=== PATIENT | female | born 1990 | race Caucasian/White ===

== ENCOUNTER 2019-08-21 23:50 | Emergency (ER) | payer SELFPAY ==
[~2019-08-21] VITALS: Ht 162.5 cm; Wt 126.9 kg
[2019-08-22] MEDS ORDERED: morphine INJ 10 MG/ML 1ML (SYR OR VIAL) IVP STA (00:24)
--- NOTE | 2019-08-22 00:24 | ED Abdominal Pain ---
General Chief Complaint: Abdominal/GI Problems Stated Complaint: VOMITING Nursing Triage Note: PT. REPORTED SHE HAS NAUSEA, VOMITING AND DIARREHA THAT STARTED YESTERDAY AFTERNOON. SHE REPORTED WHEN VOMITING SHE HAS ABD. PAIN. SHE REPORTED SHE HAS VOMITED SO MANY TIMES SHE LOST COUNT OF HOW MANY TIMES SHE VOMITED. Sepsis Screen: No Definite Risk Source of Information: Patient Exam Limitations: No Limitations History of Present Illness Date Seen by Provider: Aug 22, 2019 Time Seen by Provider: 00:10 Initial Comments The patient is a pleasant obese 28-year-old female who presents for evaluation of nausea, vomiting, diarrhea, and abdominal discomfort which started appr oximately 6-8 hours ago. She reports that some family members the day before had similar symptoms, were prescribed Zofran, and are now feeling better. Her family tried to give her one of the Zofran but she states he did not help. She reports several episodes of vomiting and diarrhea. She has a past surgical history including appendectomy and cholecystectomy. She denies fevers or chills, back or flank pain, rectal bleeding, hematemesis, chest pain or shortness of breath, or urinary complaints. She is alert and oriented 4, appears somewhat anxious, but is in no distress this time. Timing/Duration: 4-6 Hours Severity/Quality: Moderate Location: Generalized Abdomen Radiation: No Radiation Associated Symptoms: Nausea/Vomiting, Other (diarrhea) Allergies and Home Medications Allergies Coded Allergies: tramadol (Verified Allergy, Unknown, 08/22/19) Patient Home Medication List Home Medication List Reviewed: Yes Review of Systems Review of Systems Constitutional: no symptoms reported EENTM: No Symptoms Reported Respiratory: No Symptoms Reported Cardiovascular: No Symptoms Reported Gastrointestinal: Abdominal Pain, Diarrhea, Nausea, Vomiting Genitourinary: No Symptoms Reported Musculoskeletal: no symptoms reported Skin: no symptoms reported Psychiatric/Neurological: No Symptoms Reported Endocrine: No Symptoms Reported Hematologic/Lymphatic: No Symptoms Reported All Other Systems Reviewed Negative Unless Noted: Yes Past Ndwnfig-Edlrqt-Xyonvy Hx Past Med/Social Hx: Reviewed Nursing Past Med/Soc Hx Patient Social History Recent Foreign Travel: No Contact w/Someone Who Travel: No Recent Infectious Disease Expo: No Recent Hopitalizations: No Physical Abuse: No Sexual Abuse: No Mistreated: No Fear: No Seasonal Allergies Seasonal Allergies: No Past Medical History Surgeries: Yes Appendectomy, Section, Gallbladder, Tonsillectomy Respiratory: No Cardiac: No Neurological: No Female Reproductive Disorders: Ovarian Cyst Genitourinary: No Gastrointestinal: Yes Gall Bladder Disease Musculoskeletal: No Endocrine: No HEENT: No Cancer: No Psychosocial: No Integumentary: No Blood Disorders: No Physical Exam Vital Signs Vital Signs - First Documented 08/22/19 00:00 Temp 36.7 Pulse 98 Resp 16 B/P (MAP) 116/72 (87) O2 Delivery Room Air Capillary Refill : Less Than 3 Seconds Height/Weight/BMI Height: '" Weight: lbs. oz. 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, no motor/sensory deficits, alert, normal mood/affect, oriented x 3 Skin: normal color, warm/dry Progress/Results/Core Measures Results/Orders Lab Results Laboratory Tests Test 08/22/19 00:30 08/22/19 00:38 Range/Units White Blood Count 11.9 H 4.3-11.0 10^3/uL Red Blood Count 5.02 4.35-5.85 10^6/uL Hemoglobin 13.7 11.5-16.0 G/DL Hematocrit 42 35-52 % Mean Corpuscular Volume 84 80-99 FL Mean Corpuscular Hemoglobin 27 25-34 PG Mean Corpuscular Hemoglobin Concent 32 32-36 G/DL Red Cell Distribution Width 13.1 10.0-14.5 % Platelet Count 357 130-400 10^3/uL Mean Platelet Volume 9.9 7.4-10.4 FL Neutrophils (%) (Auto) 91 H 42-75 % Lymphocytes (%) (Auto) 5 L 12-44 % Monocytes (%) (Auto) 3 0-12 % Eosinophils (%) (Auto) 0 0-10 % Basophils (%) (Auto) 0 0-10 % Neutrophils # (Auto) 10.9 H 1.8-7.8 X 10^3 Lymphocytes # (Auto) 0.6 L 1.0-4.0 X 10^3 Monocytes # (Auto) 0.4 0.0-1.0 X 10^3 Eosinophils # (Auto) 0.1 0.0-0.3 10^3/uL Basophils # (Auto) 0.0 0.0-0.1 10^3/uL Neutrophils % (Manual) 96 % Lymphocytes % (Manual) 1 % Monocytes % (Manual) 1 % Band Neutrophils 2 % Microcytosis MODERATE Sodium Level 141 135-145 MMOL/L Potassium Level 4.0 3.6-5.0 MMOL/L Chloride Level 99 98-107 MMOL/L Carbon Dioxide Level 26 21-32 MMOL/L Anion Gap 16 H 5-14 MMOL/L Blood Urea Nitrogen 10 7-18 MG/DL Creatinine 0.69 0.60-1.30 MG/DL Estimat Glomerular Filtration Rate > 60 BUN/Creatinine Ratio 14 Glucose Level 137 H 70-105 MG/DL Calcium Level 9.3 8.5-10.1 MG/DL Corrected Calcium 9.0 8.5-10.1 MG/DL Total Bilirubin 0.4 0.1-1.0 MG/DL Aspartate Amino Transf (AST/SGOT) 18 5-34 U/L Alanine Aminotransferase (ALT/SGPT) 19 0-55 U/L Alkaline Phosphatase 68 40-136 U/L Total Protein 7.8 6.4-8.2 GM/DL Albumin 4.4 3.2-4.5 GM/DL Lipase 14 8-78 U/L Urine Color YELLOW Urine Clarity CLEAR Urine pH 5.5 5-9 Urine Specific [place] 1.025 H 1.016-1.022 Urine Protein NEGATIVE NEGATIVE Urine Glucose (UA) NEGATIVE NEGATIVE Urine Ketones NEGATIVE NEGATIVE Urine Nitrite NEGATIVE NEGATIVE Urine Bilirubin NEGATIVE NEGATIVE Urine Urobilinogen 0.2 < = 1.0 MG/DL Urine Leukocyte Esterase NEGATIVE NEGATIVE Urine RBC (Auto) TRACE-I NEGATIVE Urine RBC 0-2 /HPF Urine WBC 0-2 /HPF Urine Squamous Epithelial Cells 25-50 H /HPF Urine Crystals NONE /LPF Urine Bacteria MODERATE H /HPF Urine Casts NONE /LPF Urine Mucus NEGATIVE /LPF Urine Culture Indicated YES My Orders Orders - ANMOL NOVAK DO Comprehensive Metabolic Panel (08/22/19 00:12) Lipase (08/22/19 00:12) Ua Culture If Indicated (08/22/19 00:12) Ed Iv/Invasive Line Start (08/22/19 00:12) Cbc With Automated Diff (08/22/19 00:12) Urine Bedside (08/22/19 00:12) Ns Iv 1000 Ml (Sodium Chloride 0.9%) (08/22/19 00:30) Dicyclomine Injection (Bentyl Injection) (08/22/19 00:30) Ondansetron Injection (Zofran Injectio (08/22/19 00:30) Ns Iv 1000 Ml (Sodium Chloride 0.9%) (08/22/19 00:30) Morphine Injection (Morphine Injection (08/22/19 00:24) Manual Differential (08/22/19 00:30) Urine Culture (08/22/19 00:38) Medications Given in ED Current Medications Medications Dose Ordered Sig/Edward Route Start Time Stop Time Status Last Admin Dose Admin Dicyclomine HCl 20 mg ONCE ONCE IM 08/22/19 00:30 08/22/19 00:31 DC 08/22/19 00:37 20 MG Ondansetron HCl 4 mg ONCE ONCE IVP 08/22/19 00:30 08/22/19 00:31 DC 08/22/19 00:38 4 MG Vital Signs/I&O 08/22/19 00:00 Temp 36.7 Pulse 98 Resp 16 B/P (MAP) 116/72 (87) O2 Delivery Room Air Blood Pressure Mean: 87 POS Progress Progress Note : Progress Note @0130 - The patient reports that she is feeling much better and is asking to go home. Workup today fails to reveal any emergent pathology. Advised patient to follow up with her PCP in the next 1-2 days and to return to the emergency Department immediately for new or worsening symptoms. She expresses verbal understanding and agreement with the plan and is stable for discharge. Departure Impression Primary Impression: Nausea vomiting and diarrhea Additional Impression: Abdominal pain Disposition: 01 HOME, SELF-CARE Condition: Stable Departure-Patient Inst. Decision time for Depature: 01:31 Referrals: NO,LOCAL PHYSICIAN (PCP) [place] Care Physician [facility] [place] Instructions: Nausea and Vomiting, Adult (DC), Viral Gastroenteritis, Dehydration, Adult (DC), Diarrhea in Adolescents and Adults Add. Discharge Instructions: Take the prescribed medicine as directed. Return to the ER immediately for new or worsening symptoms. Follow-up with your doctor in the next 1-2 days. Scripts Ondansetron (Ondansetron Odt) 4 Mg Tab.rapdis 4 MG PO Q6H PRN for NAUSEA/VOMITING-1ST LINE for 5 Days, #20 TAB Prov: ANMOL NOVAK DO 08/22/19 ANMOL NOVAK DO Aug 22, 2019 00:24 POS
[2019-08-22] MEDS ORDERED: KETOROLAC 30 MG/ML VIAL IVP ONE (00:30)
[2019-08-22] MEDS ORDERED: NS IV 1000 ML 1,000 ML IV SCH ×2 (00:30)
[2019-08-22] MEDS ORDERED: DICYCLOMINE 10 MG/ML (BENTYL) 2 ML AMP IM ONE (00:30)
[2019-08-22] MEDS ORDERED: ONDANSETRON 4 MG/2 ML (SDV) Z0FRAN IVP ONE (00:30)
[2019-08-22 00:39] LABS: HEMOGLOBIN 13.7 G/DL (11.5-16.0); MEAN CORPUSCULAR HEMOGLOBIN 27 PG (25-34); WHITE BLOOD COUNT 11.9 10^3/uL (4.3-11.0)
[2019-08-22 00:40] LABS: BASOPHILS % (AUTO) 0 % (0-10); EOSINOPHILS # (AUTO) 0.1 10^3/uL (0.0-0.3); EOSINOPHILS % (AUTO) 0 % (0-10); HEMATOCRIT 42 % (35-52); LYMPHOCYTES # (AUTO) 0.6 X 10^3 (1.0-4.0); LYMPHOCYTES % (AUTO) 5 % (12-44); MEAN CORPUSCULAR HGB CONC 32 G/DL (32-36); MEAN CORPUSCULAR VOLUME 84 FL (80-99); MEAN PLATELET VOLUME 9.9 FL (7.4-10.4); MONOCYTES # (AUTO) 0.4 X 10^3 (0.0-1.0); MONOCYTES % (AUTO) 3 % (0-12); NEUTROPHILS # (AUTO) 10.9 X 10^3 (1.8-7.8); NEUTROPHILS % (AUTO) 91 % (42-75); PLATELET COUNT 357 10^3/uL (130-400); RED CELL DISTRIBUTION WIDTH 13.1 % (10.0-14.5)
[2019-08-22 00:48] LABS: BILIRUBIN,URINE NEGATIVE (NEGATIVE); CLARITY,URINE CLEAR; COLOR,URINE YELLOW; GLUCOSE, URINE (UA) NEGATIVE (NEGATIVE); KETONES,URINE NEGATIVE (NEGATIVE); LEUKOCYTE ESTERASE ,URINE NEGATIVE (NEGATIVE); NITRITE,URINE NEGATIVE (NEGATIVE); PH,URINE 5.5 (5-9); PROTEIN,URINE NEGATIVE (NEGATIVE)
[2019-08-22 00:57] LABS: BACTERIA,URINE MODERATE /HPF; RBC,URINE 0-2 /HPF; SQUAMOUS EPITHELIAL CELL,UR 25-50 /HPF; WBC,URINE 0-2 /HPF
[2019-08-22 01:03] LABS: ALANINE AMINOTRANSFERASE 19 U/L (0-55); ALBUMIN 4.4 GM/DL (3.2-4.5); ALKALINE PHOSPHATASE 68 U/L (40-136); BILIRUBIN,TOTAL 0.4 MG/DL (0.1-1.0); BUN/CREATININE RATIO 14; CALCIUM 9.3 MG/DL (8.5-10.1); CARBON DIOXIDE 26 MMOL/L (21-32); CHLORIDE 99 MMOL/L (98-107); CREATININE SERUM 0.69 MG/DL (0.60-1.30); GFR ESTIMATED > 60; GLUCOSE 137 MG/DL (70-105); LIPASE 14 U/L (8-78); SODIUM 141 MMOL/L (135-145); TOTAL PROTEIN 7.8 GM/DL (6.4-8.2)
[2019-08-22 01:04] LABS: BAND NEUTROPHILS 2 %; LYMPHOCYTES % (MANUAL) 1 %; MICROCYTOSIS MODERATE; MONOCYTES % (MANUAL) 1 %; NEUTROPHILS % (MANUAL) 96 %
[2019-08-22] MEDS ORDERED: ONDA4TAB11 PO (01:33)
[2019-08-22 01:53] VITALS: BP 120/74
== END 2019-08-22 01:57 | disposition home or self-care (01) ==
LOC: ER FS 23:54
DX: R19.7 Diarrhea, unspecified (principal); R11.2 Nausea with vomiting, unspecified; R10.84 Generalized abdominal pain; Z90.49 Acquired absence of other specified parts of digestive tract; Z88.5 Allergy status to narcotic agent; Z90.89 Acquired absence of other organs
CPT/HCPCS: 36415; 80053; 81000; 83690; 84703; 85007; 85027; 87088; 96372; 96374; 96375

== ENCOUNTER → 2020-07-28 | Outpatient (CLI) | payer MEDICAID ==
[~2020-07-28] MED LIST: ONDA4TAB11 PO
--- NOTE | 2020-07-28 13:54 | Diagnostic Imaging Report ---
INDICATION: patient, survey. TECHNIQUE: Multiple Real-time grayscale images were obtained over the gravid uterus. COMPARISON: None during this . FINDINGS: A single live intrauterine fetus is seen measuring 20 weeks 5 days in size. The fetus is in breech presentation at this time. The placenta is posterior and low lying with its tip near the internal cervical os. The tip appears to be about 1.8 cm from the internal cervical os. The heart rate was 146 BPM. The maternal adnexa showed no free fluid. The cervical length was 5.2 cm. The survey showed normal-appearing kidneys, bladder, and stomach. Normal-appearing intracranial ventricles and spine were noted. A normal-appearing three-vessel cord and cord insertion were seen. A four-chamber heart view could not be obtained due to positioning. Biometrical measurements are as follows: Biparietal 5.05 cm, age 21 weeks 3 days. Head circumference 18..7 cm, age 21 weeks 1 days. Abdominal circumference 15.2 cm, age 20 weeks 4 days. Femur length 3.1 cm, age 19 weeks 5 days. Sonographic estimate age: 20 weeks 5 days. Sonographic estimated date of delivery: 12/10/2020. Estimated Weight: 339 gm (+/- 50 gm). LMP percentile: 40%. heart rate: 146 beats per minute. number: 1 of 1. IMPRESSION: Single live intrauterine fetus measuring 20 weeks 5 days in size. survey shows no detectable abnormality although a four-chamber heart view was not well visualized, consider followup. The placenta is posterior and low-lying, just about 1.8 cm above the internal cervical os. I would recommend followup studies later in to determine if this resolves. Dictated by: Dictated on workstation # [id number]
== END ==
LOC: RAD 09:46
PROVIDERS: ATTEND Obstetrics & Gynecology
DX: Z36.9 Encounter for antenatal screening, unspecified (principal)
CPT/HCPCS: 76805

== ENCOUNTER 2020-10-28 22:56 | Outpatient (CLI) | payer MEDICAID ==
[~2020-10-28] VITALS: Ht 162.6 cm; Wt 129.0 kg
--- NOTE | 2020-10-28 23:05 | NUR ---
FÁTIMA CHRISTIE presented to unit via W/C from ED, accompanied by bioprocessing manufacturing technician, with c/o CONTRACTIONS,VAGINAL PAIN. FÁTIMA CHRISTIE weighed, gowned, voided, and to bed. EFHM and TOCO applied, VS taken. FÁTIMA CHRISTIE oriented to bed controls, call light, TV, heat, and A/C controls.
[2020-10-28 23:12] LABS: BILIRUBIN,URINE NEGATIVE (NEGATIVE); CLARITY,URINE CLEAR; COLOR,URINE YELLOW; GLUCOSE, URINE (UA) NEGATIVE (NEGATIVE); KETONES,URINE NEGATIVE (NEGATIVE); LEUKOCYTE ESTERASE ,URINE NEGATIVE (NEGATIVE); NITRITE,URINE NEGATIVE (NEGATIVE); PROTEIN,URINE NEGATIVE (NEGATIVE)
[2020-10-28] MEDS ORDERED: PREN-142 PO (23:14)
[2020-10-28] MEDS ORDERED: OMEP20CA18 PO (23:14)
[2020-10-28 23:17] VITALS: BP 137/83
[2020-10-28 23:19] LABS: BACTERIA,URINE MODERATE /HPF
[2020-10-28 23:20] LABS: RENAL EPITHELIAL CELLS,URINE RARE /HPF
--- NOTE | 2020-10-28 23:55 | NUR ---
D/C instructions given & explained per Mildred Green, RN, pt. verbalized understanding & signed, copy of D/C instructions to pt. Pt. left WS ambulatory on own to home via private vehicle.
--- NOTE | 2020-10-29 08:17 | Physician Query-Final Dx ---
GISSEL PRIDE 10/29/20 0817: Clinic Account Progress/Dx Physician Query: Please give diagnosis Please include # of weeks gestation Date of Service Oct 28, 2020 at 22:56 JAMES DUPONT DO 10/29/20 1121: Clinic Account Progress/Dx DIAGNOSIS: Diagnosis 34 week iup Vaginal pain Anxiety GISSEL PRIDE Oct 29, 2020 08:17 JAMES DUPONT DO Oct 29, 2020 11:21
== END 2020-10-28 23:55 | disposition home or self-care (01) ==
LOC: WSo 22:56 → LDRP 22:57 → WSo 23:55
PROVIDERS: ATTEND Obstetrics & Gynecology
DX: O99.343 Other mental disorders complicating pregnancy, third trimester (principal); O26.893 Other specified pregnancy related conditions, third trimester; R10.2 Pelvic and perineal pain; Z3A.34 34 weeks gestation of pregnancy
CPT/HCPCS: 81000; G0463; 99212

== ENCOUNTER → 2020-11-17 | Outpatient (CLI) | payer MEDICAID ==
[~2020-11-17] MED LIST changes: +OMEP20CA18 PO; +PREN-142 PO
== END ==
LOC: LABNPT 15:15
PROVIDERS: ATTEND Obstetrics & Gynecology
DX: R03.0 Elevated blood-pressure reading, without diagnosis of hypertension (principal)
CPT/HCPCS: 82570; 84156

== ENCOUNTER 2020-11-18 14:23 | Outpatient (CLI) | payer MEDICAID ==
[~2020-11-18] VITALS: Ht 162.6 cm; Wt 133.4 kg
[2020-11-18 14:40] VITALS: BP 124/69
--- NOTE | 2020-11-19 08:22 | Physician Query-Final Dx ---
GISSEL PRIDE 11/19/20 0822: Clinic Account Progress/Dx Physician Query: Please give diagnosis Please include # weeks gestation Date of Service Nov 18, 2020 at 14:23 JAMES DUPONT DO 11/19/20 0833: Clinic Account Progress/Dx DIAGNOSIS: Diagnosis Pelvic pain/hip pain at 35 weeks gestation GISSEL PRIDE Nov 19, 2020 08:22 JAMES DUPONT DO Nov 19, 2020 08:33
== END 2020-11-18 16:05 | disposition home or self-care (01) ==
LOC: WSo 14:23 → LDRP 14:24 → WSo 16:05
PROVIDERS: ATTEND Obstetrics & Gynecology
DX: O99.891 Other specified diseases and conditions complicating pregnancy (principal); Z3A.35 35 weeks gestation of pregnancy
CPT/HCPCS: 99213

== ENCOUNTER 2020-12-02 05:42 | Outpatient (RCR) | payer MEDICAID ==
[~2020-12-02] VITALS: Ht 162.6 cm; Wt 132.7 kg
[2020-12-06] MEDS ORDERED: ACHD5005 PO (07:26)
[2020-12-06] MEDS ORDERED: IBUP-844 PO (07:26)
[2020-12-06] MEDS ORDERED: DCS100C PO (07:26)
== END 2020-12-02 12:42 | disposition home or self-care (01) ==
LOC: PREOP 05:42
PROVIDERS: ATTEND Obstetrics & Gynecology
DX: Z01.818 Encounter for other preprocedural examination (principal)

== ENCOUNTER 2020-12-05 23:05 | Inpatient (IN) | payer MEDICAID ==
[~2020-12-05] VITALS: Ht 162.6 cm; Wt 130.6 kg
[2020-12-05 23:19] VITALS: BP 118/62
[2020-12-05 23:23] LABS: BILIRUBIN,URINE NEGATIVE (NEGATIVE); CLARITY,URINE SL CLOUDY; COLOR,URINE YELLOW; GLUCOSE, URINE (UA) NEGATIVE (NEGATIVE); KETONES,URINE 1+ (NEGATIVE); LEUKOCYTE ESTERASE ,URINE TRACE (NEGATIVE); NITRITE,URINE NEGATIVE (NEGATIVE); PROTEIN,URINE NEGATIVE (NEGATIVE)
[2020-12-05 23:26] VITALS: BP 118/62
[2020-12-05 23:35] LABS: BACTERIA,URINE TRACE /HPF; SQUAMOUS EPITHELIAL CELL,UR >50 /HPF; WBC,URINE 0-2 /HPF
[2020-12-06] VITALS (11 sets, daily range): BP systolic 104–133; BP diastolic 54–88
[2020-12-06] MEDS ORDERED: LACTATED RINGERS 1,000 ML IV SCH (00:15)
[2020-12-06 01:09] LABS: BASOPHILS % (AUTO) 0 % (0-10); EOSINOPHILS % (AUTO) 0 % (0-10); HEMATOCRIT 35 % (35-52); HEMOGLOBIN 11.4 g/dL (11.5-16.0); LYMPHOCYTES # (AUTO) 2.1 10^3/uL (1.0-4.0); LYMPHOCYTES % (AUTO) 22 % (12-44); MEAN CORPUSCULAR HEMOGLOBIN 27 pg (25-34); MEAN CORPUSCULAR HGB CONC 32 g/dL (32-36); MEAN CORPUSCULAR VOLUME 84 fL (80-99); MEAN PLATELET VOLUME 10.7 fL (9.0-12.2); MONOCYTES # (AUTO) 0.5 10^3/uL (0.0-1.0); MONOCYTES % (AUTO) 6 % (0-12); NEUTROPHILS % (AUTO) 72 % (42-75); PLATELET COUNT 327 10^3/uL (130-400); WHITE BLOOD COUNT 9.6 10^3/uL (4.3-11.0)
[2020-12-06 01:16] LABS: ALBUMIN 3.3 GM/DL (3.2-4.5)
[2020-12-06 01:17] LABS: CHLORIDE 106 MMOL/L (98-107); POTASSIUM 3.4 MMOL/L (3.6-5.0); SODIUM 136 MMOL/L (135-145)
[2020-12-06 01:18] LABS: CALCIUM 8.7 MG/DL (8.5-10.1)
[2020-12-06 01:19] LABS: GLUCOSE 83 MG/DL (70-105); TOTAL PROTEIN 6.5 GM/DL (6.4-8.2)
[2020-12-06 01:20] LABS: CARBON DIOXIDE 20 MMOL/L (21-32)
[2020-12-06 01:21] LABS: BILIRUBIN,TOTAL 0.2 MG/DL (0.1-1.0)
[2020-12-06 01:22] LABS: ALKALINE PHOSPHATASE 156 U/L (40-136)
[2020-12-06 01:23] LABS: GFR ESTIMATED > 60
[2020-12-06 01:24] LABS: BUN/CREATININE RATIO 13
[2020-12-06 01:25] LABS: ALANINE AMINOTRANSFERASE 24 U/L (0-55)
[2020-12-06] MEDS ORDERED: BUTORPHANOL INJ 2 MG/ML (STADOL) VIAL ONE (01:43)
[2020-12-06] MEDS ORDERED: BUTORPHANOL INJ 2 MG/ML (STADOL) VIAL IV ONE ×2 (01:45→04:15)
[2020-12-06] MEDS ORDERED: metroNIDAZOLE 500MG/100ML IVPB 100 ML IV ONE (01:45)
[2020-12-06] MEDS ORDERED: ceFAZolin 2 GM IV Premixed 50 ML IV ONE (01:45)
[2020-12-06 02:20] LABS: BASOPHILS % (AUTO) 0 % (0-10); EOSINOPHILS % (AUTO) 0 % (0-10); HEMATOCRIT 35 % (35-52); HEMOGLOBIN 11.4 g/dL (11.5-16.0); LYMPHOCYTES # (AUTO) 2.5 10^3/uL (1.0-4.0); LYMPHOCYTES % (AUTO) 23 % (12-44); MEAN CORPUSCULAR HEMOGLOBIN 27 pg (25-34); MEAN CORPUSCULAR HGB CONC 33 g/dL (32-36); MEAN CORPUSCULAR VOLUME 84 fL (80-99); MEAN PLATELET VOLUME 10.4 fL (9.0-12.2); MONOCYTES # (AUTO) 0.6 10^3/uL (0.0-1.0); MONOCYTES % (AUTO) 6 % (0-12); NEUTROPHILS # (AUTO) 7.8 10^3/uL (1.8-7.8); NEUTROPHILS % (AUTO) 71 % (42-75); PLATELET COUNT 350 10^3/uL (130-400)
[2020-12-06] MEDS ORDERED: METOCLOPRAMIDE INJ 10 MG/2 ML (REGLAN) ONE (06:48)
[2020-12-06] MEDS ORDERED: CITRIC ACID/SOB CIT (BICITRA) 30 ML UDC ONE (06:48)
[2020-12-06] MEDS ORDERED: ceFAZolin 2 GM IV Premixed 50 ML ONE (06:48)
[2020-12-06] MEDS ORDERED: FAMOTIDINE 20MG/2ML IV (PEPCID) ONE (06:48)
[2020-12-06] MEDS ORDERED: metroNIDAZOLE 500MG/100ML IVPB 100 ML ONE (06:48)
[2020-12-06] MEDS ORDERED: CITRIC ACID/SOB CIT (BICITRA) 30 ML UDC PO ONE (07:00)
[2020-12-06] MEDS ORDERED: OXYTOCIN PRE-MIX DRIP 1,000 ML IV ONE (07:00)
[2020-12-06] MEDS ORDERED: CATHETER FLUSH 10 ML SYR IV PRN (07:00)
[2020-12-06] MEDS ORDERED: METOCLOPRAMIDE INJ 10 MG/2 ML (REGLAN) IV ONE (07:00)
[2020-12-06] MEDS ORDERED: LACTATED RINGERS 1,000 ML IV PRN ×2 (07:00)
[2020-12-06] MEDS ORDERED: fentaNYL INJECTION 100 MCG/2 ML AMP ONE (07:01)
--- NOTE | 2020-12-06 07:06 | History & Physical-OB ---
OB - Chief Complaint & HPI Date/Time Date of Admission: Date of Admission: Dec 06, 2020 at 01:44 Date seen by a Provider: Dec 06, 2020 Time Seen by a Provider: 06:55 Chief Complaint/History OB-Reason for Admission/Chief: Onset of Labor Hx : 4 Hx Para: 2 Expected Date of Delivery: Dec 13, 2020 Gestational Age in Weeks: 39 Gestational Age in Days: 0 Indication for : desires repeat Admission Nurse Assessment Rev: Yes History of Labs O pos Antibody neg GBS neg Allergies and Home Medications Allergies Coded Allergies: tramadol (Verified Allergy, Unknown, 08/22/19) Home Medications Omeprazole 20 Mg Capsule.dr, 20 MG PO DAILY, (Reported) Vit No.124/Iron/FA 1 Each Tablet, 1 EACH PO DAILY, (Reported) Patient Home Medication List Home Medication List Reviewed: Yes OB - History Hx of Present Care: Yes Ultrasounds: Normal mid trimester US Obstetrical Complications: None Medical Complications: None Obstetrical History Hx : 4 Hx Para: 2 Patient Past Medical History BMI 49 Social History/Family History Alcohol Use: Denies Use Recreational Drug Use: No 2nd Hand Smoke Exposure: No Immunizations Date of Influenza Vaccine: Sep 14, 2021 OB - Admission Exam Physical Exam Vitals: Vital Signs 12/05/20 12/06/20 12/06/20 23:26 01:30 04:30 Temp 36.5 Pulse 76 Resp 18 B/P (MAP) 128/75 (92) Pulse Ox 98 O2 Delivery Room Air HEENT: NCAT Heart: Rhythm Normal Lungs: Clear Abdomen: Gravid Extremities: Normal Reflexes: Normal Cervical Dilatation: 1cm Effacement: 75% Station: -2 Heart Rate: 130's Accelerations: Accelerations Present Decelerations: No Decelerations Short Term Variability: Present Longterm Variability: Average (6-25) Contractions on Admission: 6-10 Minutes Apart Intensity: Mild Labs Laboratory Tests Test 12/05/20 23:15 12/06/20 00:50 12/06/20 02:07 12/06/20 02:25 Range/Units Urine Color YELLOW Urine Clarity SL CLOUDY Urine pH 6.0 5-9 Urine Specific [place] 1.025 H 1.016-1.022 Urine Protein NEGATIVE NEGATIVE Urine Glucose (UA) NEGATIVE NEGATIVE Urine Ketones 1+ H NEGATIVE Urine Nitrite NEGATIVE NEGATIVE Urine Bilirubin NEGATIVE NEGATIVE Urine Urobilinogen 0.2 < = 1.0 MG/DL Urine Leukocyte Esterase TRACE H NEGATIVE Urine RBC (Auto) NEGATIVE NEGATIVE Urine RBC NONE /HPF Urine WBC 0-2 /HPF Urine Squamous Epithelial Cells >50 H /HPF Urine Crystals NONE /LPF Urine Bacteria TRACE /HPF Urine Casts NONE /LPF Urine Mucus SMALL H /LPF Urine Culture Indicated NO White Blood Count 9.6 11.0 4.3-11.0 10^3/uL Red Blood Count 4.17 4.18 3.80-5.11 10^6/uL Hemoglobin 11.4 L 11.4 L 11.5-16.0 g/dL Hematocrit 35 35 35-52 % Mean Corpuscular Volume 84 84 80-99 fL Mean Corpuscular Hemoglobin 27 27 25-34 pg Mean Corpuscular Hemoglobin Concent 32 33 32-36 g/dL Red Cell Distribution Width 13.2 13.2 10.0-14.5 % Platelet Count 327 350 130-400 10^3/uL Mean Platelet Volume 10.7 10.4 9.0-12.2 fL Immature Granulocyte % (Auto) 0 0 % Neutrophils (%) (Auto) 72 71 42-75 % Lymphocytes (%) (Auto) 22 23 12-44 % Monocytes (%) (Auto) 6 6 0-12 % Eosinophils (%) (Auto) 0 0 0-10 % Basophils (%) (Auto) 0 0 0-10 % Neutrophils # (Auto) 7.0 7.8 1.8-7.8 10^3/uL Lymphocytes # (Auto) 2.1 2.5 1.0-4.0 10^3/uL Monocytes # (Auto) 0.5 0.6 0.0-1.0 10^3/uL Eosinophils # (Auto) 0.0 0.0 0.0-0.3 10^3/uL Basophils # (Auto) 0.0 0.0 0.0-0.1 10^3/uL Immature Granulocyte # (Auto) 0.0 0.0 0.0-0.1 10^3/uL Sodium Level 136 135-145 MMOL/L Potassium Level 3.4 L 3.6-5.0 MMOL/L Chloride Level 106 98-107 MMOL/L Carbon Dioxide Level 20 L 21-32 MMOL/L Anion Gap 10 5-14 MMOL/L Blood Urea Nitrogen 8 7-18 MG/DL Creatinine 0.60 0.60-1.30 MG/DL Estimat Glomerular Filtration Rate > 60 BUN/Creatinine Ratio 13 Glucose Level 83 70-105 MG/DL Calcium Level 8.7 8.5-10.1 MG/DL Corrected Calcium 9.3 8.5-10.1 MG/DL Total Bilirubin 0.2 0.1-1.0 MG/DL Aspartate Amino Transf (AST/SGOT) 22 5-34 U/L Alanine Aminotransferase (ALT/SGPT) 24 0-55 U/L Alkaline Phosphatase 156 H 40-136 U/L Total Protein 6.5 6.4-8.2 GM/DL Albumin 3.3 3.2-4.5 GM/DL OB - Assessment/Plan/Diagnosis Assessment Assessment: section Admission Dx 30 yo @ 39 weeks Active labor Previous GBS neg Admission Status: Inpatient Order (span 2 midnights) Reason for Inpatient Admission: Repeat Plan Plan: Section JAMES DUPONT DO Dec 06, 2020 07:06
--- NOTE | 2020-12-06 07:25 | Discharge Inst-Women's Service ---
Discharge Inst-Women's Serv Depart Medication/Instructions New, Converted or Re-Newed RX: RX on Chart Final Diagnosis POD 2 RLTCS Problems Reviewed?: Yes Consults/Follow Up Additional Follow Up: Yes Orders/Referrals Dr. Simms in 7-10 days and in 6 weeks Activity Activity: Activity as Tolerated Driving Instructions: No Driving for 1 Week NO SMOKING: NO SMOKING Nothing Inside Vagina: No Douching, No [place], No Tampons Diet Discharge Diet: No Restrictions Symptoms to Report to : Bleeding Excessive, Pain Increased, Fever Over 101 Degrees F, Vaginal Bleeding Increase, Questions/Concerns For Any Problems or Questions: Contact Your Physician Skin/Wound Care Infection Signs and Symptoms: Increased Redness, Foul Odor of Wound, Increased Drainage, Skin Itchy or Has a Rash, Increased Swelling, Temperature Above 101 F Operative Area Clean and Dry: Keep Incision Clean/Dry Stitches/Amy/Dermabond: Dermabond, Care of Stitches Bathing Instructions: JAMES Gómez DO Dec 06, 2020 07:25
[2020-12-06] MEDS ORDERED: ACHD5005 PO (07:26)
[2020-12-06] MEDS ORDERED: IBUP-844 PO (07:26)
[2020-12-06] MEDS ORDERED: DCS100C PO (07:26)
[2020-12-06] MEDS ORDERED: ONDANSETRON 4 MG/2 ML (SDV) Z0FRAN IVP PRN (07:30)
[2020-12-06] MEDS ORDERED: MEASLES,MUMPS,RUBELLA 1 EA INJ SC SCH (07:30)
[2020-12-06] MEDS ORDERED: TETANUS,DIPTH,PERTUSS P/F (BOOSTRIX) 0.5 ML VIAL IM SCH (07:30)
[2020-12-06] MEDS ORDERED: KETOROLAC 30 MG/ML VIAL IV SCH (07:30)
[2020-12-06] MEDS ORDERED: PHENYLEPHRINE INJ 10 MG/ML (FOR DRIP KITS ONLY) ONE (08:12)
[2020-12-06] MEDS ORDERED: PHENYLEPHRINE 100 MCG/ML 10 ML (ANESTHESIA) SYR ONE (08:13)
[2020-12-06] MEDS: OXYTOCIN PRE-MIX DRIP 500 ML IV SCH (09:45)
[2020-12-06] MEDS ORDERED: HYDROcodone/APAP 5 MG/325 MG (LORTAB) TAB ONE (10:32)
[2020-12-06] MEDS: HYDROcodone/APAP 5 MG/325 MG (LORTAB) TAB PO PRN ×3 (10:39→21:58)
--- NOTE | 2020-12-06 13:17 | OPERATIVE REPORT ---
DATE OF SERVICE: PREOPERATIVE DIAGNOSES: 1. A 30-year-old G4, P2 at 39 weeks' gestation. 2. Active labor. 3. Previous section x2. POSTOPERATIVE DIAGNOSES: 1. A 30-year-old G4, P2 at 39 weeks' gestation. 2. Active labor. 3. Previous section x2. PROCEDURE: Repeat low transverse section. SURGEON: Steven Simms DO ANESTHESIA: Spinal. ESTIMATED BLOOD LOSS: 300 mL. URINE OUTPUT: 100 mL clear at the end of procedure. FLUIDS: 2000 mL lactated Ringer's solution. FINDINGS: A live male weighing 8 pounds 14 ounces, Apgars of 8 and 8. Grossly normal appearing uterus, bilateral fallopian tubes and ovaries. SPECIMEN SENT: Placenta. INDICATIONS FOR PROCEDURE: This 30-year-old female is a patient who was scheduled for this for repeat . However, she came in in spontaneous labor. The decision was made to proceed with delivery today rather than waiting until due to labor status. Risk of the procedure was reviewed with the patient again, once in the preoperative area and consent was obtained, the patient was taken to the operating room. OPERATIVE REPORT IN DETAIL: Once in the operating room, spinal analgesia was found to be adequate. She was placed in supine position with leftward tilt, prepped and draped in normal sterile fashion where a timeout was performed and anesthesia was tested. I then make a Pfannenstiel skin incision through a previously existing scar using a knife, carried down to underlying fascia using Bovie cautery. Then, fascial incision was extended laterally using Bovie cautery. Superior aspect of fascial incision was then grasped with Buck clamps, tented up and dissected off the underlying rectus muscles. The inferior aspect of the fascial incision was then grasped with Buck clamps, tented up and dissected off the underlying rectus muscle. The rectus muscle was then dissected down the midline using sharp dissection, which exposed the peritoneum, which I entered bluntly and extended using blunt traction. Dao ring retractor was placed in the peritoneal incision, which offers excellent lateral sidewall retraction. I then identified the lower uterine segment, which was found to be thinned out and make a low transverse incision to the vesicouterine peritoneum and bluntly dissected off the lower uterine segment until membranes are visualized and I have created a bladder flap in the process of taking down the vesicouterine peritoneum. Once I am able to visualize the membranes, I am able to extend the uterine incision laterally and superiorly using bandage scissors. Amniotomy was then performed using Allis clamp. Clear fluid was noted. was found in the vertex presentation. With gentle fundal pressure, the infant's head was delivered through the incision. The nares and oropharynx were bulb suctioned. Nuchal cord was reduced x1. Anterior and posterior shoulders were delivered. The was then brought to the operative field. The cord was duly clamped and cut and was handed off to waiting nurses in attendance. Cord blood was collected, 3-vessel cord with intact placenta was delivered spontaneously thereafter. IV Pitocin was initiated to facilitate uterine contraction. Uterine fundus confirmed by manual massage. Uterus was then exteriorized and cleared of all endometrial clots and debris. I then proceeded with closing the uterine incision using 0 Vicryl suture in running locked fashion. Second layer of imbricating 0 Monocryl was placed. Excellent hemostasis was noted after doing this. I then placed the uterus back in the pelvis, copiously irrigated the pelvis using normal saline. Once again, there was no active bleeding noted from any of my dissection planes. I placed Interceed antiadhesive over my low transverse incision and proceeded with closing the peritoneum after removing the Dao ring retractor. The peritoneum was reapproximated using 3-0 Vicryl suture in running fashion. The rectus muscle reapproximated using 3-0 Vicryl suture in interrupted fashion. The fascia was reapproximated using 0 Vicryl suture in running fashion. Subcutaneous tissue was reapproximated using 3-0 plain interrupted subcutaneous stitch and the skin was reapproximated using mac. Lap and sponge counts were correct at the end of procedure. Instrument counts correct as well. Two grams of Ancef were given preoperatively for infection prophylaxis. Job ID: [id number] DocumentID: [id number] Dictated Date: 12/06/2020 08:22:45 Supervisor Wheel Shop Date: 12/06/2020 13:16:19 Dictated By: DO ELIZABETH JOAQUIN
[2020-12-06] MEDS ORDERED: CATHETER FLUSH 10 ML SYR IV SCH (14:00)
[2020-12-06] MEDS ORDERED: IBUPROFEN 600 MG (MOTRIN) TAB PO ONE ×2 (15:43→21:48)
[2020-12-06] MEDS: IBUPROFEN 600 MG (MOTRIN) TAB PO SCH ×2 (15:49→21:59)
[2020-12-06] MEDS ORDERED: SIMETHICONE 80 MG (MYLICON) CHEW ONE (17:00)
[2020-12-06] MEDS: SIMETHICONE 80 MG (MYLICON) CHEW PO SCH ×2 (17:10→23:06)
[2020-12-06] MEDS: DOCUSATE SODIUM 100 MG (COLACE) CAP PO SCH (20:38)
[2020-12-07 00:30] VITALS: BP 109/53
[2020-12-07] MEDS: IBUPROFEN 600 MG (MOTRIN) TAB PO SCH ×4 (03:47→22:06)
[2020-12-07] MEDS: HYDROcodone/APAP 5 MG/325 MG (LORTAB) TAB PO PRN ×4 (03:47→22:07)
[2020-12-07 04:10] VITALS: BP 123/63
[2020-12-07] MEDS: OXYTOCIN PRE-MIX DRIP 500 ML IV SCH (05:51)
[2020-12-07] MEDS: DOCUSATE SODIUM 100 MG (COLACE) CAP PO SCH ×3 (05:51→20:26)
[2020-12-07 06:14] LABS: BASOPHILS % (AUTO) 0 % (0-10); EOSINOPHILS % (AUTO) 1 % (0-10); HEMATOCRIT 31 % (35-52); HEMOGLOBIN 10.1 g/dL (11.5-16.0); LYMPHOCYTES # (AUTO) 1.7 10^3/uL (1.0-4.0); LYMPHOCYTES % (AUTO) 22 % (12-44); MEAN CORPUSCULAR HEMOGLOBIN 28 pg (25-34); MEAN CORPUSCULAR HGB CONC 33 g/dL (32-36); MEAN CORPUSCULAR VOLUME 85 fL (80-99); MEAN PLATELET VOLUME 10.4 fL (9.0-12.2); MONOCYTES # (AUTO) 0.5 10^3/uL (0.0-1.0); MONOCYTES % (AUTO) 6 % (0-12); NEUTROPHILS # (AUTO) 5.7 10^3/uL (1.8-7.8); NEUTROPHILS % (AUTO) 71 % (42-75); PLATELET COUNT 262 10^3/uL (130-400)
--- NOTE | 2020-12-07 08:05 | Postpartum Progress Note ---
Note Note Day # 1 Subjective: Patient is without complaints. Ambulating, voiding. Tolerating a regular diet without nausea or vomiting. Normal lochia. Pain is well controlled with oral pain medications. Objective: Physical Exam: General - Alert and oriented, no apparent distress Abdomen - Soft, appropriately tender to palpation, non-distended, fundus firm at umbilicus Extremities - no edema, negative Scar's bilaterally Incision- c/d/i, mac in place Assessment: POD 1 RLTCS Acute blood loss anemia Plan: Routine care. Encourage breast feeding. Encourage ambulation. Ferrous sulfate supplementation. Plan for discharge tomorrow Vitals - Labs Vital Signs - I&O Vital Signs Date Time Temp Pulse Resp B/P (MAP) Pulse Ox O2 Delivery O2 Flow Rate FiO2 12/07/20 04:10 36.3 71 18 123/63 (83) Room Air 12/07/20 00:30 36.0 81 18 109/53 (71) 98 Room Air 12/06/20 20:45 36.4 84 20 107/54 (71) 98 Room Air 12/06/20 17:09 36.9 80 18 126/63 (84) 98 Room Air 12/06/20 11:40 Room Air 12/06/20 09:45 36.3 73 18 116/60 (78) 98 Room Air 12/06/20 09:25 74 18 125/70 (88) 98 Room Air 12/06/20 09:19 Room Air 12/06/20 09:19 36.1 18 104/59 (74) 98 Room Air 12/06/20 09:05 Room Air 12/06/20 09:05 36.4 16 110/56 (74) 98 Room Air 12/06/20 08:50 Room Air 12/06/20 08:50 36.1 22 119/65 (83) 100 Room Air 12/06/20 08:35 36.4 16 114/66 (82) 97 Room Air 12/06/20 08:35 Room Air 12/06/20 08:20 36.3 16 121/57 (78) 98 Room Air 12/06/20 08:20 Room Air I & O 12/07/20 07:00 Intake Total 1600 ml Output Total 700 ml Balance 900 ml Labs Laboratory Tests 12/07/20 06:08: White Blood Count 8.0, Red Blood Count 3.66L, Hemoglobin 10.1L, Hematocrit 31L, Mean Corpuscular Volume 85, Mean Corpuscular Hemoglobin 28, Mean Corpuscular Hemoglobin Concent 33, Red Cell Distribution Width 13.5, Platelet Count 262, Mean Platelet Volume 10.4, Immature Granulocyte % (Auto) 0, Neutrophils (%) (Auto) 71, Lymphocytes (%) (Auto) 22, Monocytes (%) (Auto) 6, Eosinophils (%) (Auto) 1, Basophils (%) (Auto) 0, Neutrophils # (Auto) 5.7, Lymphocytes # (Auto) 1.7, Monocytes # (Auto) 0.5, Eosinophils # (Auto) 0.0, Basophils # (Auto) 0.0, Immature Granulocyte # (Auto) 0.0 Microbiology 12/06/20 MRSA Screen - Final, Complete MRSA not isolated JAMES DUPONT DO Dec 07, 2020 08:05
[2020-12-07] MEDS: SIMETHICONE 80 MG (MYLICON) CHEW PO SCH ×3 (08:58→20:27)
[2020-12-07 09:00] VITALS: BP 134/68
[2020-12-07 12:00] VITALS: BP 128/66
[2020-12-07 16:00] VITALS: BP 114/57
[2020-12-07 20:25] VITALS: BP 133/66
[2020-12-08 00:02] VITALS: BP 107/53
[2020-12-08] MEDS: SIMETHICONE 80 MG (MYLICON) CHEW PO SCH ×2 (01:05→08:15)
[2020-12-08 03:53] VITALS: BP 114/56
[2020-12-08] MEDS: HYDROcodone/APAP 5 MG/325 MG (LORTAB) TAB PO PRN ×2 (03:54→10:41)
[2020-12-08] MEDS: IBUPROFEN 600 MG (MOTRIN) TAB PO SCH ×2 (03:54→10:41)
--- NOTE | 2020-12-08 07:17 | Postpartum Progress Note ---
Note Note Day # 2 Subjective: Patient is without complaints. Ambulating, voiding. Tolerating a regular diet without nausea or vomiting. Normal lochia. Pain is well controlled with oral pain medications. Objective: Physical Exam: General - Alert and oriented, no apparent distress Abdomen - Soft, appropriately tender to palpation, non-distended, fundus firm at umbilicus Extremities - no edema, negative Scar's bilaterally Incision- c/d/i Assessment: POD 2 RLTCS Plan: Routine care. Encourage breast feeding. Encourage ambulation. Ferrous sulfate supplementation. Plan for discharge today Vitals - Labs Vital Signs - I&O Vital Signs Date Time Temp Pulse Resp B/P (MAP) Pulse Ox O2 Delivery O2 Flow Rate FiO2 12/08/20 03:53 36.7 68 18 114/56 (75) 96 Room Air 12/08/20 00:02 36.9 74 18 107/53 (71) 96 Room Air 12/07/20 20:25 36.5 89 18 133/66 (88) 99 Room Air 12/07/20 16:00 36.9 83 18 114/57 (76) 99 Room Air 12/07/20 12:00 36.7 82 18 128/66 (86) 98 Room Air 12/07/20 09:00 36.6 81 20 134/68 (90) 99 Room Air I & O 12/08/20 07:00 Intake Total 1800 ml Output Total 1050 ml Balance 750 ml Labs Microbiology 12/06/20 MRSA Screen - Final, Complete MRSA not isolated JAMES DUPONT DO Dec 08, 2020 07:17
[2020-12-08 08:05] VITALS: BP 127/60
[2020-12-08] MEDS: DOCUSATE SODIUM 100 MG (COLACE) CAP PO SCH (08:14)
[2020-12-08 11:35] VITALS: BP 127/60
== END 2020-12-08 11:35 | disposition home or self-care (01) | DRG 787 ==
LOC: WSo 23:05 → LDRP 23:05 → WSo 12-06 01:44 → WS 12-06 09:55
PROVIDERS: ADMIT Obstetrics & Gynecology; ATTEND Obstetrics & Gynecology
PROC: 10D00Z1 Extraction of Products of Conception, Low, Open Approach (ICD-10-PCS; principal; 2020-12-06 07:22)
DX: O34.211 Maternal care for low transverse scar from previous cesarean delivery (principal); D62 Acute posthemorrhagic anemia; Z3A.39 39 weeks gestation of pregnancy; Z37.0 Single live birth; O90.81 Anemia of the puerperium; Z20.822 Contact with and (suspected) exposure to COVID-19
CPT/HCPCS: 36415; 80053; 81000; 85025; 86850; 86900; 86901; 87081; 87635; 94664; 99212

== ENCOUNTER 2020-12-14 18:27 | Emergency (ER) | payer MEDICAID ==
[~2020-12-14] VITALS: Ht 162 cm; Wt 115.0 kg
[~2020-12-14 18:27] MED LIST changes: +ACHD5005 PO; +DCS100C PO; +IBUP-844 PO
[2020-12-14] MEDS ORDERED: NS IV 1000 ML 1,000 ML IV STA (18:34)
[2020-12-14] MEDS ORDERED: ONDANSETRON 4 MG/2 ML (SDV) Z0FRAN IVP STA (18:34)
[2020-12-14 18:49] LABS: CLARITY,URINE CLEAR; COLOR,URINE YELLOW
[2020-12-14 18:50] LABS: BACTERIA,URINE TRACE /HPF; BILIRUBIN,URINE NEGATIVE (NEGATIVE); GLUCOSE, URINE (UA) NEGATIVE (NEGATIVE); KETONES,URINE NEGATIVE (NEGATIVE); LEUKOCYTE ESTERASE ,URINE 1+ (NEGATIVE); NITRITE,URINE NEGATIVE (NEGATIVE); PROTEIN,URINE NEGATIVE (NEGATIVE); SQUAMOUS EPITHELIAL CELL,UR 0-2 /HPF
[2020-12-14 18:56] LABS: HEMATOCRIT 35 % (35-52); HEMOGLOBIN 11.7 G/DL (11.5-16.0); MEAN CORPUSCULAR HEMOGLOBIN 27 PG (25-34); MEAN CORPUSCULAR HGB CONC 33 G/DL (32-36); MEAN CORPUSCULAR VOLUME 83 FL (80-99); MEAN PLATELET VOLUME 9.8 FL (7.4-10.4); PLATELET COUNT 481 10^3/uL (130-400); WHITE BLOOD COUNT 7.4 10^3/uL (4.3-11.0)
[2020-12-14 18:57] LABS: BASOPHILS % (AUTO) 0 % (0-10); EOSINOPHILS # (AUTO) 0.3 10^3/uL (0.0-0.3); EOSINOPHILS % (AUTO) 4 % (0-10); LYMPHOCYTES # (AUTO) 1.8 X 10^3 (1.0-4.0); LYMPHOCYTES % (AUTO) 24 % (12-44); MONOCYTES # (AUTO) 0.4 X 10^3 (0.0-1.0); MONOCYTES % (AUTO) 5 % (0-12); NEUTROPHILS # (AUTO) 4.9 X 10^3 (1.8-7.8); NEUTROPHILS % (AUTO) 67 % (42-75)
[2020-12-14] MEDS ORDERED: diphenhydrAMINE 50 MG/ML INJ (BENADRYL) IVP STA (19:00)
[2020-12-14] MEDS ORDERED: KETOROLAC 30 MG/ML VIAL IVP STA (19:00)
[2020-12-14] MEDS ORDERED: METOCLOPRAMIDE INJ 10 MG/2 ML (REGLAN) IVP STA (19:00)
--- NOTE | 2020-12-14 19:04 | ED Headache ---
General Chief Complaint: Head/Cervical Problems Stated Complaint: VOMITING,NAUSEA,HEADACHE,LIGHTHEADED Nursing Triage Note: PT REPORTS A HX OF MIGRAINES AND TODAY SHE HAS HAD ONE ALL DAY WITH NAUSEA AND VOMITING. PAIN IS ALL OVER THE BACK OF HER HEAD. TOOK A "HYDRO" AT NOON BUT VOMITED IT RIGHT BACK UP. Nursing Sepsis Screen: No Definite Risk Source: patient History of Present Illness Date Seen by Provider: Dec 14, 2020 Time Seen by Provider: 18:29 Initial Comments 30-year-old female presenting with complaints of headache that has been present since she woke up this morning. It is right-sided and feels similar to prior headaches and migraines that she has had in the past. She has had nausea and vomiting all day as well. She had tried taking a pain pill from her recent C- section but was unable to keep it down. She has no nausea medicine at home. In the past she has received Reglan and medications with fluids and that has helped for her migraine headaches. She did just deliver a baby by on December 06. She has had no complications or problems from that. She is sore around her incision from the vomiting. She denies any fever but has had some chills and felt flushed right before vomiting. Allergies and Home Medications Allergies Coded Allergies: tramadol (Verified Allergy, Unknown, 08/22/19) Home Medications Docusate Sodium 100 Mg Capsule, 100 MG PO BID PRN for CONSTIPATION-1ST LINE Prescribed by: JAMES DUPONT on 12/06/20 0726 Hydrocodone Bit/Acetaminophen 1 Tab Tab, 1-2 EA PO Q6HR PRN for PAIN-MODERATE (5-7) Prescribed by: JAMES DUPONT on 12/06/20 0726 Ibuprofen 600 Mg Tablet, 600 MG PO Q6HR Prescribed by: JAMES DUPONT on 12/06/20 0726 Omeprazole 20 Mg Capsule.dr, 20 MG PO DAILY, (Reported) Vit No.124/Iron/FA 1 Each Tablet, 1 EACH PO DAILY, (Reported) Patient Home Medication List Home Medication List Reviewed: Yes Review of Systems Review of Systems Constitutional: chills (And feeling flushed right before vomiting); No fever Eyes: Denies Blurred Vision; Photophobia Ears, Nose, Mouth, Throat: denies ear pain, denies ear discharge, denies nose pain, denies nose discharge, denies epistaxis Respiratory: No cough Cardiovascular: No chest pain Gastrointestinal: nausea, vomiting Genitourinary: No dysuria, No frequency Musculoskeletal: no symptoms reported Skin: No rash Psychiatric/Neurological: See HPI; Denies Numbness, Denies Paresthesia Past Jhlglrr-Kggahh-Rglnjj Hx Patient Social History Alcohol Use: Denies Use Type Used: Cigarettes Former Smoker, Quit: Dec 07, 2019 2nd Hand Smoke Exposure: No Recent Infectious Disease Expo: No Recent Hopitalizations: No Immunizations Up To Date Date of Influenza Vaccine: Sep 14, 2021 Seasonal Allergies Seasonal Allergies: No Past Medical History Surgeries: Yes (c/s x2, UD, cyst removed from falliopan tube, bilat CTR) Appendectomy, Section, Gallbladder, Tonsillectomy Respiratory: No Cardiac: No Neurological: No Female Reproductive Disorders: Ovarian Cyst Genitourinary: No Gastrointestinal: Yes Gastroesophageal Reflux, Gall Bladder Disease Musculoskeletal: No Endocrine: No HEENT: No Cancer: No Psychosocial: No Integumentary: No Blood Disorders: No Physical Exam Vital Signs Vital Signs - First Documented 12/14/20 18:30 Temp 36.4 Pulse 64 Resp 18 B/P (MAP) 127/72 (90) Pulse Ox 98 O2 Delivery Room Air Capillary Refill : Less Than 3 Seconds Height, Weight, BMI Height: '" Weight: lbs. oz. kg; 43.00 BMI Method: General Appearance: WD/WN, moderate distress, obese HEENT: PERRL/EOMI, normal ENT inspection, TMs normal, pharynx normal Neck: non-tender, full range of motion, supple, normal inspection Cardiovascular: normal peripheral pulses, regular rate, rhythm Respiratory: chest non-tender, lungs clear, normal breath sounds Gastrointestinal: normal bowel sounds, soft, no pulsatile mass Extremities: normal range of motion, normal capillary refill Psychiatric: alert, oriented x 3 Crainal Nerves: normal hearing, normal speech, PERRL Coordination/Gait: normal gait Motor/Sensory: no motor deficit, no sensory deficit Skin: normal color, warm/dry Progress/Results/Core Measures Results/Orders Lab Results Laboratory Tests Test 12/14/20 18:30 12/14/20 18:48 Range/Units Urine Color YELLOW Urine Clarity CLEAR Urine pH 6.0 5-9 Urine Specific [place] 1.025 H 1.016-1.022 Urine Protein NEGATIVE NEGATIVE Urine Glucose (UA) NEGATIVE NEGATIVE Urine Ketones NEGATIVE NEGATIVE Urine Nitrite NEGATIVE NEGATIVE Urine Bilirubin NEGATIVE NEGATIVE Urine Urobilinogen 0.2 < = 1.0 MG/DL Urine Leukocyte Esterase 1+ H NEGATIVE Urine RBC (Auto) 3+ H NEGATIVE Urine RBC 10-25 H /HPF Urine WBC 2-5 /HPF Urine Squamous Epithelial Cells 0-2 /HPF Urine Crystals NONE /LPF Urine Bacteria TRACE /HPF Urine Casts NONE /LPF Urine Mucus SMALL H /LPF Urine Culture Indicated YES White Blood Count 7.4 4.3-11.0 10^3/uL Red Blood Count 4.27 L 4.35-5.85 10^6/uL Hemoglobin 11.7 11.5-16.0 G/DL Hematocrit 35 35-52 % Mean Corpuscular Volume 83 80-99 FL Mean Corpuscular Hemoglobin 27 25-34 PG Mean Corpuscular Hemoglobin Concent 33 32-36 G/DL Red Cell Distribution Width 13.3 10.0-14.5 % Platelet Count 481 H 130-400 10^3/uL Mean Platelet Volume 9.8 7.4-10.4 FL Immature Granulocyte % (Auto) 0 % Neutrophils (%) (Auto) 67 42-75 % Lymphocytes (%) (Auto) 24 12-44 % Monocytes (%) (Auto) 5 0-12 % Eosinophils (%) (Auto) 4 0-10 % Basophils (%) (Auto) 0 0-10 % Neutrophils # (Auto) 4.9 1.8-7.8 X 10^3 Lymphocytes # (Auto) 1.8 1.0-4.0 X 10^3 Monocytes # (Auto) 0.4 0.0-1.0 X 10^3 Eosinophils # (Auto) 0.3 0.0-0.3 10^3/uL Basophils # (Auto) 0.0 0.0-0.1 10^3/uL Immature Granulocyte # (Auto) 0.0 0.0-0.1 10^3/uL Sodium Level 139 135-145 MMOL/L Potassium Level 4.0 3.6-5.0 MMOL/L Chloride Level 106 98-107 MMOL/L Carbon Dioxide Level 22 21-32 MMOL/L Anion Gap 11 5-14 MMOL/L Blood Urea Nitrogen 12 7-18 MG/DL Creatinine 0.63 0.60-1.30 MG/DL Estimat Glomerular Filtration Rate > 60 BUN/Creatinine Ratio 19 Glucose Level 92 70-105 MG/DL Calcium Level 8.7 8.5-10.1 MG/DL Corrected Calcium 9.4 8.5-10.1 MG/DL Total Bilirubin 0.2 0.1-1.0 MG/DL Aspartate Amino Transf (AST/SGOT) 15 5-34 U/L Alanine Aminotransferase (ALT/SGPT) 15 0-55 U/L Alkaline Phosphatase 116 40-136 U/L Total Protein 6.3 L 6.4-8.2 GM/DL Albumin 3.1 L 3.2-4.5 GM/DL Lipase 14 8-78 U/L My Orders Orders - VALERIE CEDILLO MD Ua Culture If Indicated (12/14/20 18:32) Comprehensive Metabolic Panel (12/14/20 18:34) Lipase (12/14/20 18:34) Ed Iv/Invasive Line Start (12/14/20 18:34) Cbc With Automated Diff (12/14/20 18:34) Ns Iv 1000 Ml (Sodium Chloride 0.9%) (12/14/20 18:34) Ondansetron Injection (Zofran Injectio (12/14/20 18:34) Urine Culture (12/14/20 18:30) Ketorolac Injection (Toradol Injection) (12/14/20 19:00) Metoclopramide Injection (Reglan Injecti (12/14/20 19:00) Diphenhydramine Injection (Benadryl Inje (12/14/20 19:00) Vital Signs/I&O 12/14/20 12/14/20 18:30 20:34 Temp 36.4 Pulse 64 80 Resp 18 16 B/P (MAP) 127/72 (90) 136/97 Pulse Ox 98 99 O2 Delivery Room Air Room Air Blood Pressure Mean: 90 Progress Progress Note #1: Progress Note Obtain basic labs and give IV fluids with Zofran, Reglan, Benadryl, Toradol. Progress Note #2: Progress Note Labs are all stable without acute significant abnormality. Her pain was improved with medication and treatment here in the ED. She had no further nausea or vomiting. Her pain went down to a 1 and her photophobia resolved. Counseled on follow-up and return precautions. Advised to keep pushing fluids and rest. See clinic and primary for continued concerns. Departure Impression Primary Impression: Migraine headache without aura Qualified Codes: G43.009 - Migraine without aura, not intractable, without status migrainosus Disposition: HOME, SELF-CARE Condition: Improved Departure-Patient Inst. Decision time for Depature: 20:29 Referrals: YVETTE LUNA MD (PCP/Family) Primary Care Physician Patient Instructions: Home Headache Remedies, Migraines (DC) Add. Discharge Instructions: Stay well hydrated and try to get plenty of rest. Follow up with clinic for continued concerns All discharge instructions reviewed with patient and/or family. Voiced understanding. VALERIE CEDILLO MD Dec 14, 2020 19:04
[2020-12-14 19:17] LABS: BUN/CREATININE RATIO 19; CARBON DIOXIDE 22 MMOL/L (21-32); CHLORIDE 106 MMOL/L (98-107); CREATININE SERUM 0.63 MG/DL (0.60-1.30); GFR ESTIMATED > 60; SODIUM 139 MMOL/L (135-145)
[2020-12-14 19:18] LABS: ALANINE AMINOTRANSFERASE 15 U/L (0-55); ALBUMIN 3.1 GM/DL (3.2-4.5); ALKALINE PHOSPHATASE 116 U/L (40-136); BILIRUBIN,TOTAL 0.2 MG/DL (0.1-1.0); CALCIUM 8.7 MG/DL (8.5-10.1); GLUCOSE 92 MG/DL (70-105); LIPASE 14 U/L (8-78); TOTAL PROTEIN 6.3 GM/DL (6.4-8.2)
[2020-12-14 20:34] VITALS: BP 136/97
== END 2020-12-14 20:34 | disposition home or self-care (01) ==
LOC: EDUNIT# 18:27 → ER FS 18:29
DX: G43.909 Migraine, unspecified, not intractable, without status migrainosus (principal); K21.9 Gastro-esophageal reflux disease without esophagitis; Z87.891 Personal history of nicotine dependence; Z88.5 Allergy status to narcotic agent
CPT/HCPCS: 36415; 80053; 81000; 83690; 85025; 87088

== ENCOUNTER 2021-02-22 20:24 | Emergency (ER) | payer MEDICAID ==
[~2021-02-22] VITALS: Ht 162.5 cm; Wt 127.8 kg
[2021-02-22 20:28] VITALS: BP 134/92
[2021-02-22] MEDS ORDERED: RX-ONDANSETRON 4 MG ODT (ZOFRAN) PPK #4 ONE (20:46)
[2021-02-22] MEDS ORDERED: ONDANSETRON 4 MG (ZOFRAN) ORAL DISSOLVE TAB PO STA (20:46)
[2021-02-22] MEDS ORDERED: ONDANSETRON 4 MG (ZOFRAN) ORAL DISSOLVE TAB ONE (20:46)
--- NOTE | 2021-02-22 20:50 | ED GI ---
General Chief Complaint: Abdominal/GI Problems Stated Complaint: ABD PAIN,VOMITING History of Present Illness Date Seen by Provider: February 22, 2021 Time Seen by Provider: 20:38 Initial Comments Went to work tonight and started vomiting. Last ate a lv sanchez @ 5pm, N/V & D began before 7pm. Some upper abdominal cramping without fever or chills. + sick contacts at home...her child. No other recent illness or preceding event. Allergies and Home Medications Allergies Coded Allergies: tramadol (Verified Allergy, Unknown, 08/22/19) Home Medications Docusate Sodium 100 Mg Capsule, 100 MG PO BID PRN for CONSTIPATION-1ST LINE Prescribed by: JAMES DUPONT on 12/06/20 07 Hydrocodone Bit/Acetaminophen 1 Tab Tab, 1-2 EA PO Q6HR PRN for PAIN-MODERATE (5-7) Prescribed by: JAMES DUPONT on 12/06/20725 Ibuprofen 600 Mg Tablet, 600 MG PO Q6HR Prescribed by: JAMES DUPONT on 12/06/20725 Omeprazole 20 Mg Capsule.dr, 20 MG PO DAILY, (Reported) Vit No.124/Iron/FA 1 Each Tablet, 1 EACH PO DAILY, (Reported) Patient Home Medication List Home Medication List Reviewed: Yes Review of Systems Review of Systems Constitutional: see HPI; No chills, No diaphoresis, No dizziness, No fever; malaise; No weakness EENTM: No Symptoms Reported Respiratory: No Symptoms Reported; Denies Cough, Denies Shortness of Air Cardiovascular: Denies Chest Pain, Denies Edema, Denies Palpitations, Denies Syncope Gastrointestinal: See HPI, Abdominal Pain (cramping), Diarrhea, Nausea; Denies Poor Fluid Intake; Vomiting Musculoskeletal: No back pain, No joint pain Skin: No change in color, No rash Past Mtbygar-Vxaaup-Ebdzbo Hx Past Med/Social Hx: Reviewed Nursing Past Med/Soc Hx Patient Social History Type Used: Cigarettes Former Smoker, Quit: Dec 07, 2019 2nd Hand Smoke Exposure: No Recent Hopitalizations: No Immunizations Up To Date Date of Influenza Vaccine: Sep 14, 2021 Seasonal Allergies Seasonal Allergies: No Past Medical History Surgeries: Yes (c/s x2, UD, cyst removed from falliopan tube, bilat CTR) Appendectomy, Section, Gallbladder, Tonsillectomy Respiratory: No Cardiac: No Neurological: No Female Reproductive Disorders: Ovarian Cyst Genitourinary: No Gastrointestinal: Yes Gastroesophageal Reflux, Gall Bladder Disease Musculoskeletal: No Endocrine: No HEENT: No Cancer: No Psychosocial: No Integumentary: No Blood Disorders: No Physical Exam Vital Signs Capillary Refill : Height/Weight/BMI Height: '" Weight: lbs. oz. kg; 43.00 BMI Method: General Appearance: WD/WN, no apparent distress HEENT: normal ENT inspection Neck: non-tender, supple Respiratory: chest non-tender, lungs clear Cardiovascular: regular rate, rhythm, no edema, no JVD Gastrointestinal: normal bowel sounds, non tender, soft Neurologic/Psychiatric: no motor/sensory deficits, alert, normal mood/affect, oriented x 3 Skin: normal color, warm/dry Departure Impression Primary Impression: Gastroenteritis Disposition: 01 HOME, SELF-CARE Condition: Stable Departure-Patient Inst. Decision time for Depature: 20:45 Referrals: YVETTE LUNA MD (PCP/Family) Primary Care Physician Patient Instructions: Viral Gastroenteritis, Adult (DC) Add. Discharge Instructions: see Dr Luna in 1 to 2 days if not improving, return to the nearest ER sooner if worse. All discharge instructions reviewed with patient and/or family. Voiced understanding. Work/School Note: Work Release Form Date Seen in the Emergency Department: February 22, 2021 Return to Work: February 23, 2021 Restrictions: No Restrictions ROSY MERAZ DO February 22, 2021 20:50
[2021-02-22] MEDS ORDERED: RX-ONDANSETRON 4 MG ODT (ZOFRAN) PPK #4 PO ONE (21:00)
[2021-02-23] MEDS ORDERED: ONDA4TAB11 PO (08:56)
== END 2021-02-22 21:01 | disposition home or self-care (01) ==
LOC: EDUNIT# 20:24 → ER FS 20:25
DX: K52.9 Noninfective gastroenteritis and colitis, unspecified (principal); K21.9 Gastro-esophageal reflux disease without esophagitis; Z87.891 Personal history of nicotine dependence; Z79.899 Other long term (current) drug therapy
CPT/HCPCS: 99283

== ENCOUNTER 2022-03-01 10:13 | Emergency (ER) | payer MEDICAID ==
[~2022-03-01] VITALS: Ht 162 cm; Wt 127.8 kg
[~2022-03-01 10:13] MED LIST changes: -DCS100C PO; +DOCU-239 PO
[2022-03-01] MEDS ORDERED: CEPHALEXIN 250 MG (KEFLEX) CAP PO STA (10:24)
[2022-03-01] MEDS ORDERED: DOXYCYCLINE 100 MG (VIBRAMYCIN) TABLET PO STA (10:24)
[2022-03-01] MEDS ORDERED: KETOROLAC 30 MG/ML VIAL IM ONE (10:30)
[2022-03-01] MEDS ORDERED: IBUP-1773 PO (10:31)
[2022-03-01] MEDS ORDERED: DOXY100T2 PO (10:31)
[2022-03-01] MEDS ORDERED: CEPH500T PO (10:31)
--- NOTE | 2022-03-01 10:31 | ED Upper Extremity ---
General Chief Complaint: Upper Extremity Stated Complaint: RT FINGER SWELLING Source: patient Exam Limitations: no limitations History of Present Illness Date Seen by Provider: March 01, 2022 Time Seen by Provider: 10:16 Initial Comments 31-year-old female with no pertinent past medical history coming in due to right hand pain with redness. She went camping this weekend, noticed some redness yesterday developing on the dorsal surface of her right index finger. She feels like she has to keep it straight because moving it makes it worse. The pain is moderate, throbbing, worse with movement, better with rest. She took Tylenol this morning which has helped. Denies any fever, redness spreading up her arm, open wounds, or any other concerns. Allergies and Home Medications Allergies Coded Allergies: tramadol (Verified Allergy, Unknown, 08/22/19) Patient Home Medication List Home Medication List Reviewed: Yes Docusate Sodium (Dok) 100 Mg Capsule, 100 MG PO BID PRN for CONSTIPATION-1ST L INE Prescribed by: JAMES DUPONT on 12/06/20 0726 Hydrocodone Bit/Acetaminophen (HYDROcodone/APAP 5 MG/325 MG TAB) 1 Tab Tab, 1-2 EA PO Q6HR PRN for PAIN-MODERATE (5-7) Prescribed by: JAMES DUPONT on 06/09/212136 Ibuprofen (Ibu) 600 Mg Tablet, 600 MG PO Q6HR Prescribed by: JAMES DUPONT on 06/09/212136 Omeprazole (Omeprazole) 20 Mg Capsule.dr, 20 MG PO DAILY, (Reported) Entered as Reported by: MACARIO ROCHE on 10/28/202313 Ondansetron (Ondansetron Odt) 4 Mg Tab.rapdis, 4 MG PO Q6H PRN for NAUSEA/VOMITING Prescribed by: ABHIJIT HERNANDEZ on 02/23/21 0856 Vit No.124/Iron/FA ( Vitamin Tablet) 1 Each Tablet, 1 EACH PO DAILY, (Reported) Entered as Reported by: MACARIO ROCHE on 10/28/202313 Review of Systems Constitutional: No chills, No fever EENTM: No blurred vision Respiratory: No cough Cardiovascular: No chest pain Gastrointestinal: No abdominal pain Genitourinary: no symptoms reported Musculoskeletal: joint pain Skin: rash Psychiatric/Neurological: No Symptoms Reported All Other Systems Reviewed Negative Unless Noted: Yes Past Usokkzq-Foznqs-Ucnoif Hx Patient Social History Tobacco Use?: Yes Tobacco type used: Cigarettes Smoking Status: Former Smoker Use of E-Cig and/or Vaping dev: No Substance use?: No Alcohol Use?: No Pt feels they are or have been: No Seasonal Allergies Seasonal Allergies: No Past Medical History Surgery/Hospitalization HX: URETHRAL DILATION LAP CHAN APPENDECTOMY TUBAL LIGATION TONSILECTOMY WRIST X 2 3 C-SECTIONS Surgeries: Yes (c/s x2, UD, cyst removed from falliopan tube, bilat CTR) Appendectomy, Section, Gallbladder, Tonsillectomy Respiratory: No Cardiac: No Neurological: No Female Reproductive Disorders: Ovarian Cyst Genitourinary: No Gastrointestinal: Yes Gastroesophageal Reflux, Gall Bladder Disease Musculoskeletal: No Endocrine: No HEENT: No Cancer: No Psychosocial: No Depression Integumentary: No Blood Disorders: No Physical Exam Vital Signs Capillary Refill : Height, Weight, BMI Height: '" Weight: lbs. oz. kg; 48.00 BMI Method: General Appearance: WD/WN, no apparent distress HEENT: PERRL/EOMI, normal ENT inspection, pharynx normal Neck: non-tender, full range of motion, supple, normal inspection Cardiovascular: regular rate, rhythm, no edema, no murmur Respiratory: chest non-tender, lungs clear, normal breath sounds, no respiratory distress, no accessory muscle use Gastrointestinal: normal bowel sounds, non tender, soft; No distended, No guarding, No rebound Back: normal inspection, no CVA tenderness, no vertebral tenderness Wrist: Yes normal inspection, Yes non-tender, Yes no evidence of injury, Yes normal ROM Hand: normal ROM, Right (right index finger with subtle erythema on the dorsal surface with tenderness to palpation, no deformity or bruising, normal ROM and no sign of signficiant infection, normal capillary refill, normal neurovascular exam) Neurologic/Tendon: normal sensation, normal motor functions, normal tendon functions Neurologic/Psychiatric: no motor/sensory deficits, alert, normal mood/affect Skin: normal color, warm/dry Lymphatic: no adenopathy Progress/Results/Core Measures Results/Orders My Orders Orders - MIGUELANGEL SINGH MD Ketorolac Injection (Toradol Injection) (03/01/22 10:30) Doxycycline Hyclate Tablet (Vibramycin T (03/01/22 10:24) Cephalexin Capsule (Keflex Capsule) (03/01/22 10:24) Progress Progress Note : Progress Note 31-year-old female with above history coming in due to pain in her right index finger. ABCs were intact and vitals were stable on presentation. Physical exam with some subtle erythema to the dorsal aspect of her right index finger which is tender to palpation. She does have full active and passive range of motion of the finger making me think an infected or inflamed joint is unlikely. There is no break in the skin which is more reassuring. We will treat this as a hand cellulitis that is in the beginning stages. She is had no trauma so we will forego x-ray at this time. I believe she is stable for discharge with outpatient follow-up. She was sent home with strict return precautions Departure Impression Primary Impression: Cellulitis of finger of right hand Disposition: HOME, SELF-CARE Condition: Stable Departure-Patient Inst. Decision time for Depature: 10:35 Referrals: YVETTE LUNA MD (PCP) Primary Care Physician Patient Instructions: Cellulitis (Skin Infection), Adult ED Add. Discharge Instructions: I do believe you have an early developing infection in your hand. You will be on 2 antibiotics for the next week. I have sent an anti-inflammatory to your pharmacy. You can take Tylenol on top of this. If things are not improving in the next 3 days, call your regular doctor and have quick follow-up. Scripts Ibuprofen (Ibuprofen) 600 Mg Tablet 600 MG PO Q6H PRN for PAIN-MILD for 5 Days, #30 TAB Prov: MIGUELANGEL SINGH MD 03/01/22 Cephalexin (Cephalexin) 500 Mg Tablet 500 MG PO TID for 7 Days, #21 TAB Prov: MIGUELANGEL SINGH MD 03/01/22 Doxycycline Hyclate (Doxycycline Hyclate) 100 Mg Tablet 100 MG PO BID for 7 Days, #14 TAB 0 Refills Prov: MIGUELANGEL SINGH MD 03/01/22 Work/School Note: Work Release Form Date Seen in the Emergency Department: March 01, 2022 Return to Work: March 02, 2022 Restrictions: No Restrictions MIGUELANGEL SINGH MD March 01, 2022 10:31
[2022-03-01 10:36] VITALS: BP 155/104
== END 2022-03-01 10:36 | disposition home or self-care (01) ==
LOC: EDUNIT# 10:13 → ER FS 10:14
DX: L03.011 Cellulitis of right finger (principal); Z87.891 Personal history of nicotine dependence
CPT/HCPCS: 99284

== ENCOUNTER 2022-03-15 04:55 | Emergency (ER) | payer MEDICAID ==
[~2022-03-15] VITALS: Ht 162.5 cm; Wt 136.2 kg
[~2022-03-15 04:55] MED LIST changes: +CEPH500T PO; +DOXY100T2 PO; +IBUP-1773 PO
[2022-03-15 04:59] VITALS: BP 160/98
[2022-03-15] MEDS ORDERED: AMOXICILLIN 500 MG (POLYMOX) CAP PO STA (05:09)
[2022-03-15] MEDS ORDERED: AUGMENTIN 875 MG TAB (AMOXICILLIN/CLAVULANATE) PO STA (05:09)
[2022-03-15] MEDS ORDERED: HYDROcodone/APAP 5 MG/325 MG (LORTAB) TAB PO ONE (05:15)
--- NOTE | 2022-03-15 05:18 | ED EENT ---
History of Present Illness General Chief Complaint: Dental Problems/Pain Stated Complaint: RIGHT SIDE FACE PAIN Nursing Triage Note: Patient states that her lower front right jaw started hurting at approximately 23:30 last night. Patient states that it "feels like an abscess". Patient reports more pain when she tries to lay down and go to sleep. Patient also reports that it radiates into her right ear and the right side of her neck. Patient took Tylenol, Ibuprofen and used oragel with no relief. Source: patient Exam Limitations: no limitations History of Present Illness Date Seen by Provider: Mar 15, 2022 Time Seen by Provider: 04:59 Initial Comments 31-year-old female with no pertinent past medical history coming in due to right lower jaw pain. She says it feels like an abscess in her tooth, pain is throbbing, severe, worse when laying down, better with sitting up. Radiates to her ear and down her neck slightly. Took ibuprofen, Tylenol, Orajel, and the pain is still there. Started around 1130 last night. She is otherwise denying any other acute complaints. Allergies and Home Medications Allergies Coded Allergies: tramadol (Verified Allergy, Unknown, 08/22/19) Patient Home Medication List Home Medication List Reviewed: Yes Cephalexin (Cephalexin) 500 Mg Tablet, 500 MG PO TID Prescribed by: MIGUELANGEL SINGH on 03/01/22 103 Docusate Sodium (Dok) 100 Mg Capsule, 100 MG PO BID PRN for CONSTIPATION-1ST DIMITRY E Prescribed by: JAMES DUPONT on 12/06/20 0726 Doxycycline Hyclate (Doxycycline Hyclate) 100 Mg Tablet, 100 MG PO BID Prescribed by: MIGUELANGEL SINGH on 03/01/22 103 Hydrocodone Bit/Acetaminophen (HYDROcodone/APAP 5 MG/325 MG TAB) 1 Tab Tab, 1-2 EA PO Q6HR PRN for PAIN-MODERATE (5-7) Prescribed by: JAMES DUPONT on 06/09/212136 Ibuprofen (Ibu) 600 Mg Tablet, 600 MG PO Q6HR Prescribed by: JAMES DUPONT on 06/09/212136 Ibuprofen (Ibuprofen) 600 Mg Tablet, 600 MG PO Q6H PRN for PAIN-MILD Prescribed by: MIGUELANGEL SINGH on 03/01/22 103 Omeprazole (Omeprazole) 20 Mg Capsule.dr, 20 MG PO DAILY, (Reported) Entered as Reported by: MACARIO ROCHE on 10/28/202313 Ondansetron (Ondansetron Odt) 4 Mg Tab.rapdis, 4 MG PO Q6H PRN for NAUSEA/VOMITING Prescribed by: ABHIJIT HERNANDEZ on 02/23/21 0844 Vit No.124/Iron/FA ( Vitamin Tablet) 1 Each Tablet, 1 EACH PO DAILY, (Reported) Entered as Reported by: MACARIO ROCHE on 10/28/202313 Review of Systems Review of Systems Constitutional: No fever Eyes: Denies Blurred Vision Ears: No Symptoms Reported Mouth: pain Throat: no symptoms reported Respiratory: no symptoms reported Cardiovascular: no symptoms reported Gastrointestinal: no symptoms reported Musculoskeletal: no symptoms reported Skin: no symptoms reported Neurological: No Symptoms Reported Hematologic/Lymphatic: No Symptoms Reported Immunological/Allergic: no symptoms reported All Other Systems Reviewed Negative Unless Noted: Yes Past Yiglcyi-Nadoka-Cxqvmp Hx Patient Social History Tobacco Use?: No Substance use?: No Alcohol Use?: No Pt feels they are or have been: No Seasonal Allergies Seasonal Allergies: No Past Medical History Surgery/Hospitalization HX: URETHRAL DILATION LAP CHAN APPENDECTOMY TUBAL LIGATION TONSILECTOMY WRIST X 2 3 C-SECTIONS Surgeries: Yes (c/s x2, UD, cyst removed from falliopan tube, bilat CTR) Appendectomy, Section, Gallbladder, Tonsillectomy Respiratory: No Cardiac: No Neurological: No Female Reproductive Disorders: Ovarian Cyst Genitourinary: No Gastrointestinal: Yes Gastroesophageal Reflux, Gall Bladder Disease Musculoskeletal: No Endocrine: No HEENT: No Cancer: No Psychosocial: No Depression Integumentary: No Blood Disorders: No Physical Exam Vital Signs Vital Signs - First Documented 03/15/22 04:59 Temp 36.5 Pulse 67 Resp 16 B/P (MAP) 160/98 (118) Pulse Ox 100 O2 Delivery Room Air Height, Weight, BMI Height: '" Weight: lbs. oz. kg; 51.00 BMI Method: General Appearance: WD/WN, no apparent distress Eyes: bilateral eye normal inspection Ears: bilateral ear auricle normal, bilateral ear canal normal, bilateral ear TM normal Nose: normal inspection Mouth/Throat: normal mouth inspection, pharynx normal, dental tenderness; No mandibular swelling, No pharynx swelling, No pharynx tenderness, No tonsillar exudate, No trismus, No uvula swelling, No voice changes Neck: non-tender, full range of motion, supple, normal inspection Cardiovascular: regular rate, rhythm, no edema, no murmur Respiratory: chest non-tender, lungs clear, normal breath sounds, no respiratory distress, no accessory muscle use Gastrointestinal: normal bowel sounds, non tender, soft; No distended, No guarding, No rebound Neurologic/Psychiatric: no motor/sensory deficits, alert, normal mood/affect Skin: normal color, warm/dry Progress/Results/Core Measures Results/Orders My Orders Orders - MIGUELANGEL SINGH MD Amoxicillin/Clavulanate Tablet (Augmenti (03/15/22 05:09) Amoxicillin Capsule (Polymox Capsule) (03/15/22 05:09) Hydrocodone/Apap 5/325 Tablet (Lortab 5 (03/15/22 05:15) Vital Signs/I&O 03/15/22 04:59 Temp 36.5 Pulse 67 Resp 16 B/P (MAP) 160/98 (118) Pulse Ox 100 O2 Delivery Room Air Blood Pressure Mean: 118 Progress Progress Note : Progress Note 31-year-old female with above history coming in due to right lower jaw pain. ABCs were intact and vitals were stable on presentation. Physical exam with dental tenderness mostly around tooth #27. No swelling or abscess felt. The skin is nontender externally with no rash. Possible she has an early dental abscess forming, but nothing that would be amenable to draining at this time. Possible but less likely this is trigeminal neuralgia, especially given she does not have any skin tenderness to touch and is more of a throbbing feeling compared to electric feeling. We will give her antibiotics and anti- inflammatory medicine. She was then discharged home in stable condition with strict return precautions. Departure Impression Primary Impression: Pain, dental Disposition: HOME, SELF-CARE Condition: Stable Departure-Patient Inst. Decision time for Depature: 05:16 Referrals: YVETTE LUNA MD (PCP/Family) Primary Care Physician Patient Instructions: Dental Pain ED Add. Discharge Instructions: It is possible there is an infection forming, you will take antibiotics for the next week. We will start you on an anti-inflammatory as well. Do not take ibuprofen or naproxen with this. You can take Tylenol with it. If pain is not getting better in the next 3 days then I want you to follow-up with your regular doctor Scripts Penicillin V Potassium (Penicillin V Potassium) 500 Mg Tablet 500 MG PO Q8H for 7 Days, #21 TAB Prov: MIGUELANGEL SINGH MD 03/15/22 Ketorolac Tromethamine (Ketorolac Tromethamine) 10 Mg Tablet 10 MG PO Q8H for 4 Days, #12 TAB Prov: MIGUELANGEL SINGH MD 03/15/22 Work/School Note: Work Release Form Date Seen in the Emergency Department: Mar 15, 2022 Return to Work: Mar 16, 2022 Restrictions: No Restrictions MIGUELANGEL SINGH MD Mar 15, 2022 05:18
[2022-03-15] MEDS ORDERED: KETO10TA PO (05:19)
[2022-03-15] MEDS ORDERED: PENI500T PO (05:19)
== END 2022-03-15 05:20 | disposition home or self-care (01) ==
LOC: EDUNIT# 04:55 → ER FS 04:58
DX: K08.89 Other specified disorders of teeth and supporting structures (principal)
CPT/HCPCS: 99283

== ENCOUNTER 2022-07-07 21:00 | Emergency (ER) | payer MEDICAID ==
[~2022-07-07] VITALS: Ht 162 cm; Wt 132.6 kg
[~2022-07-07 21:00] MED LIST changes: +KETO10TA PO; +PENI500T PO
[2022-07-07 21:01] VITALS: BP 141/74
[2022-07-07] MEDS ORDERED: morphine INJ 10 MG/ML 1ML (SYR OR VIAL) IVP STA (21:11)
--- NOTE | 2022-07-07 21:14 | ED Back Pain ---
General Chief Complaint: Back Problems Stated Complaint: R FLANK,LOWER BACK PAIN Source of Information: Patient Exam Limitations: No Limitations History of Present Illness Date Seen by Provider: Jul 07, 2022 Time Seen by Provider: 21:00 Initial Comments Patient is a 31-year-old female with history of appendectomy and bilateral ovarian tube removal who presents with acute onset right flank pain radiating to right lower quadrant starting approximately 2 hours prior to ED arrival. Pain is sharp, continuous, moderate to severe waxes and wanes. It is associated with nausea vomiting. Patient is unable to find position of comfort. She denies urinary frequency urgency dysuria and midline back pain. No history of kidney stones or kidney infections. No other acute symptoms or complaints Location: Other Timing/Duration: Other Severity: Moderate Radiation: Other Method of Injury: Other Modifying Factors: Improves With Other Associated Symptoms: other Allergies and Home Medications Allergies Coded Allergies: tramadol (Verified Allergy, Unknown, 08/22/19) Patient Home Medication List Home Medication List Reviewed: Yes Cephalexin (Cephalexin) 500 Mg Tablet, 500 MG PO TID Prescribed by: MIGUELANGEL SINGH on 03/01/22 1031 Docusate Sodium (Dok) 100 Mg Capsule, 100 MG PO BID PRN for CONSTIPATION-1ST LINE Prescribed by: JAMES DUPONT on 12/06/20 0726 Doxycycline Hyclate (Doxycycline Hyclate) 100 Mg Tablet, 100 MG PO BID Prescribed by: MIGUELANGEL SINGH on 03/01/22 103 Hydrocodone Bit/Acetaminophen (HYDROcodone/APAP 5 MG/325 MG TAB) 1 Tab Tab, 1-2 EA PO Q6HR PRN for PAIN-MODERATE (5-7) Prescribed by: JAMES DUPONT on 06/09/212136 Ibuprofen (Ibu) 600 Mg Tablet, 600 MG PO Q6HR Prescribed by: JAMES DUPONT on 06/09/212136 Ibuprofen (Ibuprofen) 600 Mg Tablet, 600 MG PO Q6H PRN for PAIN-MILD Prescribed by: MIGUELANGEL SINGH on 03/01/22 1031 Ketorolac Tromethamine (Ketorolac Tromethamine) 10 Mg Tablet, 10 MG PO Q8H Prescribed by: MIGUELANGEL SINGH on 03/15/22 0519 Omeprazole (Omeprazole) 20 Mg Capsule.dr, 20 MG PO DAILY, (Reported) Entered as Reported by: MACARIO ROCHE on 10/28/202313 Ondansetron (Ondansetron Odt) 4 Mg Tab.rapdis, 4 MG PO Q6H PRN for NAUSEA/VOMITING Prescribed by: ABHIJIT HERNANDEZ on 02/23/21 0856 Penicillin V Potassium (Penicillin V Potassium) 500 Mg Tablet, 500 MG PO Q8H Prescribed by: MIGUELANGEL SINGH on 03/15/22 0519 Vit No.124/Iron/FA ( Vitamin Tablet) 1 Each Tablet, 1 EACH PO DAILY, (Reported) Entered as Reported by: MACARIO ROCHE on 10/28/202313 Review of Systems Constitutional: see HPI EENTM: see HPI Respiratory: see HPI Cardiovascular: see HPI Gastrointestinal: see HPI Genitourinary: see HPI Musculoskeletal: see HPI Skin: see HPI Psychiatric/Neurological: See HPI All Other Systems Reviewed Negative Unless Noted: No Past Awuhmss-Ilubrn-Xhsxsz Hx Patient Social History Tobacco Use?: No Seasonal Allergies Seasonal Allergies: No Past Medical History Surgery/Hospitalization HX: URETHRAL DILATION LAP CHAN APPENDECTOMY TUBAL LIGATION TONSILECTOMY WRIST X 2 3 C-SECTIONS Surgeries: Yes (c/s x2, UD, cyst removed from falliopan tube, bilat CTR) Appendectomy, Section, Gallbladder, Tonsillectomy Respiratory: No Cardiac: No Neurological: No Female Reproductive Disorders: Ovarian Cyst Genitourinary: No Gastrointestinal: Yes Gastroesophageal Reflux, Gall Bladder Disease Musculoskeletal: No Endocrine: No HEENT: No Cancer: No Psychosocial: No Depression Integumentary: No Blood Disorders: No Physical Exam Vital Signs Vital Signs - First Documented 07/07/22 21:01 Temp 35.8 Pulse 102 Resp 22 B/P (MAP) 141/74 (96) Pulse Ox 98 O2 Delivery Room Air Capillary Refill : Height, Weight, BMI Height: '" Weight: lbs. oz. kg; 51.00 BMI Method: General Appearance: Moderate Distress, Obese HEENT: PERRL/EOMI, Moist Mucous Membranes Neck: Supple Cardiovascular: Regular Rate, Rhythm, No Edema Respiratory: Lungs Clear Gastrointestinal: Soft Back: Normal Inspection Neurologic/Psychiatric: Alert, Oriented x3 Progress/Results/Core Measures Results/Orders Lab Results Laboratory Tests Test 07/07/22 21:30 07/07/22 22:06 Range/Units White Blood Count 13.2 H 4.3-11.0 10^3/uL Red Blood Count 4.87 3.80-5.11 10^6/uL Hemoglobin 13.2 11.5-16.0 g/dL Hematocrit 39 35-52 % Mean Corpuscular Volume 80 80-99 fL Mean Corpuscular Hemoglobin 27 25-34 pg Mean Corpuscular Hemoglobin Concent 34 32-36 g/dL Red Cell Distribution Width 13.5 10.0-14.5 % Platelet Count 396 130-400 10^3/uL Mean Platelet Volume 10.3 9.0-12.2 fL Immature Granulocyte % (Auto) 0 % Neutrophils (%) (Auto) 66 42-75 % Lymphocytes (%) (Auto) 29 12-44 % Monocytes (%) (Auto) 5 0-12 % Eosinophils (%) (Auto) 0 0-10 % Basophils (%) (Auto) 0 0-10 % Neutrophils # (Auto) 8.7 H 1.8-7.8 10^3/uL Lymphocytes # (Auto) 3.8 1.0-4.0 10^3/uL Monocytes # (Auto) 0.6 0.0-1.0 10^3/uL Eosinophils # (Auto) 0.1 0.0-0.3 10^3/uL Basophils # (Auto) 0.0 0.0-0.1 10^3/uL Immature Granulocyte # (Auto) 0.0 0.0-0.1 10^3/uL Sodium Level 141 135-145 MMOL/L Potassium Level 3.6 3.6-5.0 MMOL/L Chloride Level 102 98-107 MMOL/L Carbon Dioxide Level 25 21-32 MMOL/L Anion Gap 14 5-14 MMOL/L Blood Urea Nitrogen 10 7-18 MG/DL Creatinine 0.66 0.60-1.30 MG/DL Estimat Glomerular Filtration Rate 119 BUN/Creatinine Ratio 15 Glucose Level 103 70-105 MG/DL Calcium Level 9.4 8.5-10.1 MG/DL Corrected Calcium 8.5-10.1 MG/DL Total Bilirubin 0.2 0.1-1.0 MG/DL Aspartate Amino Transf (AST/SGOT) 19 5-34 U/L Alanine Aminotransferase (ALT/SGPT) 19 0-55 U/L Alkaline Phosphatase 77 40-136 U/L Total Protein 7.9 6.4-8.2 GM/DL Albumin 4.7 H 3.2-4.5 GM/DL Urine Color YELLOW Urine Clarity CLOUDY Urine pH 5.5 5-9 Urine Specific Radisson >=1.030 1.016-1.022 Urine Protein NEGATIVE NEGATIVE Urine Glucose (UA) NEGATIVE NEGATIVE Urine Ketones NEGATIVE NEGATIVE Urine Nitrite NEGATIVE NEGATIVE Urine Bilirubin NEGATIVE NEGATIVE Urine Urobilinogen 0.2 < = 1.0 MG/DL Urine Leukocyte Esterase NEGATIVE NEGATIVE Urine RBC (Auto) NEGATIVE NEGATIVE Urine RBC NONE /HPF Urine WBC NONE /HPF Urine Squamous Epithelial Cells NONE /HPF Urine Crystals NONE /LPF Urine Bacteria LARGE H /HPF Urine Casts NONE /LPF Urine Mucus NEGATIVE /LPF Urine Culture Indicated YES Urine Test NEGATIVE NEGATIVE My Orders Orders - ARTURO FREY DO Cbc With Automated Diff (07/07/22 21:11) Comprehensive Metabolic Panel (07/07/22 21:11) Urine Bedside (07/07/22 21:11) Hcg,Qualitative Urine (07/07/22 21:11) Ketorolac Injection (Toradol Injection) (07/07/22 21:15) Morphine Injection (Morphine Injection (07/07/22 21:11) Ondansetron Injection (Zofran Injectio (07/07/22 21:15) Ct Abd/Pelvis Wo(Kidney Stone) (07/07/22 21:28) Ua Culture If Indicated (07/07/22 22:28) Urine Culture (07/07/22 22:06) Medications Given in ED Current Medications Medications Dose Ordered Sig/Edward Route Start Time Stop Time Status Last Admin Dose Admin Ketorolac Tromethamine 30 mg ONCE ONCE IVP 07/07/22 21:15 07/07/22 21:16 DC 07/07/22 21:31 30 MG Ondansetron HCl 4 mg ONCE ONCE IVP 07/07/22 21:15 07/07/22 21:16 DC 07/07/22 21:30 4 MG Vital Signs/I&O 07/07/22 21:01 Temp 35.8 Pulse 102 Resp 22 B/P (MAP) 141/74 (96) Pulse Ox 98 O2 Delivery Room Air Departure Communication (Admissions) CT abdomen pelvis: No acute findings per radiology report Patient with acute onset right flank pain rating to right lower quadrant. CT abdomen and pelvis nondiagnostic. Patient resting comfortably at time of discharge. Recommendations are watchful waiting supportive care and PCP follow- up as needed. Return precautions reviewed. Patient verbalizes understanding agreement discharge instructions prior to departure Impression Primary Impression: Right flank pain Disposition: 01 HOME, SELF-CARE Condition: Stable Departure-Patient Inst. Decision time for Depature: 22:42 Referrals: YVETTE LUNA MD (PCP/Family) Primary Care Physician Patient Instructions: Flank Pain (DC) Add. Discharge Instructions: You were evaluated in the emergency department for right flank pain. Lab and imaging studies were performed and are nondiagnostic. The exact cause of your symptoms has not been determined. Please go home and rest, take ibuprofen for pain as needed follow-up with your PCP in 2 to 3 days for reevaluation if symptoms persist. In the meantime if you develop new or worsening symptoms, return to the emergency department. All discharge instructions reviewed with patient and/or family. Voiced unde rstanding. ARTURO FREY DO Jul 07, 2022 21:14
[2022-07-07] MEDS ORDERED: KETOROLAC 30 MG/ML VIAL IVP ONE (21:15)
[2022-07-07] MEDS ORDERED: ONDANSETRON 4 MG/2 ML (SDV) Z0FRAN IVP ONE (21:15)
[2022-07-07 21:35] LABS: BASOPHILS % (AUTO) 0 % (0-10); EOSINOPHILS # (AUTO) 0.1 10^3/uL (0.0-0.3); EOSINOPHILS % (AUTO) 0 % (0-10); HEMATOCRIT 39 % (35-52); HEMOGLOBIN 13.2 g/dL (11.5-16.0); LYMPHOCYTES # (AUTO) 3.8 10^3/uL (1.0-4.0); LYMPHOCYTES % (AUTO) 29 % (12-44); MEAN CORPUSCULAR HEMOGLOBIN 27 pg (25-34); MEAN CORPUSCULAR HGB CONC 34 g/dL (32-36); MEAN CORPUSCULAR VOLUME 80 fL (80-99); MEAN PLATELET VOLUME 10.3 fL (9.0-12.2); MONOCYTES # (AUTO) 0.6 10^3/uL (0.0-1.0); MONOCYTES % (AUTO) 5 % (0-12); NEUTROPHILS # (AUTO) 8.7 10^3/uL (1.8-7.8); NEUTROPHILS % (AUTO) 66 % (42-75); PLATELET COUNT 396 10^3/uL (130-400); WHITE BLOOD COUNT 13.2 10^3/uL (4.3-11.0)
[2022-07-07 21:57] LABS: ALANINE AMINOTRANSFERASE 19 U/L (0-55); ALBUMIN 4.7 GM/DL (3.2-4.5); ALKALINE PHOSPHATASE 77 U/L (40-136); BILIRUBIN,TOTAL 0.2 MG/DL (0.1-1.0); BUN/CREATININE RATIO 15; CALCIUM 9.4 MG/DL (8.5-10.1); CARBON DIOXIDE 25 MMOL/L (21-32); CHLORIDE 102 MMOL/L (98-107); CREATININE SERUM 0.66 MG/DL (0.60-1.30); GFR ESTIMATED 119; GLUCOSE 103 MG/DL (70-105); POTASSIUM 3.6 MMOL/L (3.6-5.0); SODIUM 141 MMOL/L (135-145); TOTAL PROTEIN 7.9 GM/DL (6.4-8.2)
--- NOTE | 2022-07-07 22:26 | Diagnostic Imaging Report ---
PROCEDURE: CT urinary tract, rule out kidney stone. TECHNIQUE: Multiple contiguous axial images were obtained through the abdomen and pelvis without the use of intravenous contrast. Auto Exposure Controls were utilized during the CT exam to meet ALARA standards for radiation dose reduction. INDICATION: Right flank pain. COMPARISON: None. FINDINGS: Lung bases are clear. Cholecystectomy. Nonobstructing calyceal tip renal stone in the left kidney measuring 0.3 cm. No ureteral stone or hydronephrosis. The liver, pancreas, spleen, adrenals and decompressed bladder are negative. Reproductive structures are grossly unremarkable. No evidence of appendicitis. No free intraperitoneal air or fluid. No lymphadenopathy. No evidence of bowel obstruction. No acute osseous finding. IMPRESSION: 1. No acute CT finding in the abdomen or pelvis. 2. Nonobstructing calyceal tip renal stone in the left kidney. No ureteral stone or hydronephrosis. Dictated by: Dictated on workstation # [id number]
[2022-07-07 22:32] LABS: BILIRUBIN,URINE NEGATIVE (NEGATIVE); COLOR,URINE YELLOW; GLUCOSE, URINE (UA) NEGATIVE (NEGATIVE); KETONES,URINE NEGATIVE (NEGATIVE); LEUKOCYTE ESTERASE ,URINE NEGATIVE (NEGATIVE); NITRITE,URINE NEGATIVE (NEGATIVE); PH,URINE 5.5 (5-9); PROTEIN,URINE NEGATIVE (NEGATIVE)
[2022-07-07 22:39] LABS: BACTERIA,URINE LARGE /HPF; CLARITY,URINE CLOUDY
== END 2022-07-07 22:55 | disposition home or self-care (01) ==
LOC: EDUNIT# 21:07 → ER FS 21:08
DX: R10.9 Unspecified abdominal pain (principal); R11.2 Nausea with vomiting, unspecified; E66.9 Obesity, unspecified; Z90.49 Acquired absence of other specified parts of digestive tract; Z68.43 Body mass index [BMI] 50.0-59.9, adult; Z28.310 Unvaccinated for COVID-19
CPT/HCPCS: 36415; 74176; 80053; 81000; 84703; 85025; 87088

== ENCOUNTER 2022-10-22 08:20 | Emergency (ER) | payer MEDICAID ==
[~2022-10-22] VITALS: Ht 160 cm; Wt 127.0 kg
[2022-10-22] MEDS ORDERED: LIDOCAINE 2% VISCOUS 15 ML UDC PO ONE (08:45)
--- NOTE | 2022-10-22 08:48 | ED General ---
General Chief Complaint: Oral/Throat Problems Stated Complaint: SORE THROAT Nursing Triage Note: PT REPORTS A SORE THROAT AND FEELS SWOLLEN FOR ABOUT THE LAST WEEK. SHE WENT TO HER PCP ON SUNDAY AND TESTED NEGATIVE FOR STREP AND NEVER GOT HER PRESCRIPTION FOR STEROIDS BC IT WAS NOT SENT TO [facility] AND THE OFFICE WAS CLOSED BY THEN. Source of Information: Patient History of Present Illness Date Seen by Provider: Oct 22, 2022 Time Seen by Provider: 08:30 Initial Comments 32-year-old female patient with history of hypertension, GERD, depression and ADHD complaining of sore throat for the last 8 days as a constant pain that getting worse with eating and drinking. Patient denies fever and chills, cough and congestion, nasal drainage, myalgia, headache, sick contact. Patient was seen at urgent care 1 week ago with negative strep test. Patient was seen at PCP office 4 days ago and had negative strep and was told she is going to get prescription for Medrol Dosepak but it was not sent to the pharmacy. Patient states for the last 2 days she has had more pain with muffled voice and nausea and rated her pain 7/10. Allergies and Home Medications Allergies Coded Allergies: tramadol (Verified Allergy, Unknown, 08/22/19) Patient Home Medication List Home Medication List Reviewed: Yes Azithromycin (Zithromax) 250 Mg Tablet, 250 MG PO UD Prescribed by: Glenys wiggins on 10/22/22 0940 Cephalexin (Cephalexin) 500 Mg Tablet, 500 MG PO TID Prescribed by: MIGUELANGEL SINGH on 03/01/22 1031 Docusate Sodium (Dok) 100 Mg Capsule, 100 MG PO BID PRN for CONSTIPATION-1ST LINE Prescribed by: JAMES DUPONT on 12/06/20 0726 Doxycycline Hyclate (Doxycycline Hyclate) 100 Mg Tablet, 100 MG PO BID Prescribed by: MIGUELANGEL SINGH on 03/01/22 1031 Hydrocodone Bit/Acetaminophen (HYDROcodone/APAP 5 MG/325 MG TAB) 1 Tab Tab, 1-2 EA PO Q6HR PRN for PAIN-MODERATE (5-7) Prescribed by: JAMES DUPONT on 06/09/212136 Ibuprofen (Ibu) 600 Mg Tablet, 600 MG PO Q6HR Prescribed by: JAMES DUPONT on 9/2/21 2137 Ibuprofen (Ibuprofen) 600 Mg Tablet, 600 MG PO Q6H PRN for PAIN-MILD Prescribed by: MIGUELANGEL SINGH on 03/01/22 1031 Ketorolac Tromethamine (Ketorolac Tromethamine) 10 Mg Tablet, 10 MG PO Q8H Prescribed by: MIGUELANGEL SINGH on 03/15/22 0519 Ketorolac Tromethamine (Ketorolac Tromethamine) 10 Mg Tablet, 10 MG PO TID PRN for PAIN-MILD (1-4) OR TEMPATURE Prescribed by: Glenys wiggins on 10/22/22 0940 Methylprednisolone (Methylprednisolone Dose Pack) 4 Mg Tab.ds.pk, 4 MG PO UD Prescribed by: Glenys wiggins on 10/22/22 0940 Omeprazole (Omeprazole) 20 Mg Capsule.dr, 20 MG PO DAILY, (Reported) Entered as Reported by: MACARIO ROCHE on 10/28/20 2314 Ondansetron (Ondansetron Odt) 4 Mg Tab.rapdis, 4 MG PO Q6H PRN for NAUSEA/VOMITING Prescribed by: ABHIJIT HERNANDEZ on 02/23/21 0856 Penicillin V Potassium (Penicillin V Potassium) 500 Mg Tablet, 500 MG PO Q8H Prescribed by: MIGUELANGEL SINGH on 03/15/22 05 Vit No.124/Iron/FA ( Vitamin Tablet) 1 Each Tablet, 1 EACH PO DAILY, (Reported) Entered as Reported by: MACARIO ROCHE on 10/28/20 2314 Review of Systems Review of Systems Constitutional: see HPI EENTM: see HPI Respiratory: see HPI Cardiovascular: see HPI Gastrointestinal: see HPI Genitourinary: see HPI Musculoskeletal: see HPI Skin: see HPI Psychiatric/Neurological: See HPI Hematologic/Lymphatic: See HPI Immunological/Allergic: see HPI All Other Systems Reviewed Negative Unless Noted: Yes Past Uaikkfx-Iklfwv-Dwjqic Hx Patient Social History Tobacco Use?: No Use of E-Cig and/or Vaping dev: No Substance use?: No Alcohol Use?: No Pt feels they are or have been: No Seasonal Allergies Seasonal Allergies: No Past Medical History Surgery/Hospitalization HX: [facility], [facility], C-sect x 3, T&A, Tubal ligation, wrist x 2 Surgeries: Yes (c/s x2, UD, cyst removed from falliopan tube, bilat CTR) Appendectomy, Section, Gallbladder, Tonsillectomy Respiratory: No Cardiac: No Neurological: No Female Reproductive Disorders: Ovarian Cyst Genitourinary: No Gastrointestinal: Yes Gastroesophageal Reflux, Gall Bladder Disease Musculoskeletal: No Endocrine: No HEENT: No Cancer: No Psychosocial: No Depression Integumentary: No Blood Disorders: No Physical Exam Vital Signs Vital Signs - First Documented 10/22/22 08:32 Temp 35.8 Pulse 67 Resp 16 B/P (MAP) 132/88 (103) Pulse Ox 99 O2 Delivery Room Air Capillary Refill : Less Than 3 Seconds Height, Weight, BMI Height: '" Weight: lbs. oz. kg; 49.00 BMI Method: General Appearance: WD/WN, Anxious, Mild Distress Eyes: Bilateral Eye Normal Inspection, Bilateral Eye PERRL, Bilateral Eye EOMI HEENT: PERRL/EOMI, TMs Normal, Normal ENT Inspection, Pharyngeal Erythema, Other (tonsillectomy) Neck: Full Range of Motion, Normal Inspection, Non Tender, Supple, Lymphadenopathy (L), Lymphadenopathy (R) Respiratory: Chest Non Tender, Lungs Clear, Normal Breath Sounds, No Accessory Muscle Use, No Respiratory Distress Cardiovascular: Regular Rate, Rhythm, No Edema, No Gallop Gastrointestinal: Normal Bowel Sounds, No Organomegaly Back: Normal Inspection Neurologic/Psychiatric: Alert, Oriented x3 Skin: Normal Color, Warm/Dry Progress/Results/Core Measures Suspected Sepsis SIRS Temperature: Pulse: 67 Respiratory Rate: 16 Blood Pressure 132 /88 Mean: 103 Results/Orders Lab Results Laboratory Tests Test 10/22/22 08:48 Range/Units Monoscreen NEGATIVE NEGATIVE Influenza Type A (RT-PCR) Not Detected Not Detecte Influenza Type B (RT-PCR) Not Detected Not Detecte SARS-CoV-2 RNA (RT-PCR) Not Detected Not Detecte My Orders Orders - GLENYS WIGGINS MD Monotest (10/22/22 08:39) Covid 19 Inhouse Test (10/22/22 08:39) Influenza A And B By Pcr (10/22/22 08:39) Isolation Central Supply Req (10/22/22 08:39) Lidocaine 2% Viscous 15 Ml (Xylocaine Vi (10/22/22 08:45) Medications Given in ED Current Medications Medications Dose Ordered Sig/Edward Route Start Time Stop Time Status Last Admin Dose Admin Lidocaine HCl 5 ml ONCE ONCE PO 10/22/22 08:45 10/22/22 08:46 DC 10/22/22 08:46 5 ML Vital Signs/I&O 10/22/22 10/22/22 08:32 09:26 Temp 35.8 35.8 Pulse 67 67 Resp 16 16 B/P (MAP) 132/88 (103) 132/88 Pulse Ox 99 99 O2 Delivery Room Air Room Air Capillary Refill : Less Than 3 Seconds Blood Pressure Mean: 103 Progress Note : Progress Note 32-year-old female patient with history of tonsillectomy complaining of sore throat for the last 8 days with 2 negative for strep test at urgent care and primary care physician office. Patient had stable vital signs with mild erythema of pharynx without exudate or uvular edema. Patient had negative mono, COVID and flu test. Patient treated with viscous lidocaine in ER and felt partially better. Because of 8 days of symptom and not getting better plan to discharge patient home with diagnosis of acute bacterial pharyngitis and prescription for Zithromax. Also will give prescription for Medrol Dosepak and Toradol for pain. Patient advised to increase fluid intake and follow-up with primary care physician or return to ER as needed. Departure Impression Primary Impression: Acute pharyngitis Qualified Codes: J02.9 - Acute pharyngitis, unspecified Disposition: 01 HOME, SELF-CARE Condition: Improved Departure-Patient Inst. Decision time for Depature: 09:29 Referrals: YVETTE LUNA MD (PCP/Family) Primary Care Physician Patient Instructions: Sore Throat, Adult ED Add. Discharge Instructions: Drink plenty of liquids Follow-up with your primary care physician in 3 to 5 days Return to ER as needed All discharge instructions reviewed with patient and/or family. Voiced understanding. Scripts Methylprednisolone (Methylprednisolone Dose Pack) 4 Mg Tab.ds.pk 4 MG PO UD for asthma for 6 Days, #21 PKG PER DOSE PACK INSTRUCTIONS Prov: GLENYS WIGGINS MD 10/22/22 Ketorolac Tromethamine (Ketorolac Tromethamine) 10 Mg Tablet 10 MG PO TID PRN for PAIN-MILD (1-4) OR TEMPATURE, #12 TAB Prov: GLENYS WIGGINS MD 10/22/22 Azithromycin (Zithromax) 250 Mg Tablet 250 MG PO UD, #6 TAB TAKE 2 TABLETS TODAY, THEN TAKE 1 TABLET DAILY FOR 4 MORE DAYS Prov: GLENYS WIGGINS MD 10/22/22 GLENYS WIGGINS MD Oct 22, 2022 08:48
[2022-10-22 09:26] VITALS: BP 132/88
[2022-10-22] MEDS ORDERED: AZIT250T PO ×2 (09:33→09:40)
[2022-10-22] MEDS ORDERED: KETO10TA PO ×2 (09:33→09:40)
[2022-10-22] MEDS ORDERED: METH4TAB10 PO (09:40)
== END 2022-10-22 09:35 | disposition home or self-care (01) ==
LOC: EDUNIT# 08:20 → ER FS 08:22
DX: J02.9 Acute pharyngitis, unspecified (principal); Z90.89 Acquired absence of other organs; Z20.822 Contact with and (suspected) exposure to COVID-19
CPT/HCPCS: 36415; 86308; 87636

== ENCOUNTER 2023-03-27 20:53 | Emergency (ER) | payer MEDICAID ==
[~2023-03-27] VITALS: Ht 162.5 cm; Wt 136.0 kg
[~2023-03-27 20:53] MED LIST changes: +AZIT250T PO; +METH4TAB10 PO
[2023-03-27] MEDS ORDERED: NS IV 1000 ML 1,000 ML IV STA (21:14)
[2023-03-27] MEDS ORDERED: KETOROLAC 30 MG/ML VIAL IVP STA (21:14)
--- NOTE | 2023-03-27 21:17 | ED General ---
General Chief Complaint: General Problems/Pain Stated Complaint: BODY ACHES, NAIL DISCOLORATION Source of Information: Patient History of Present Illness Date Seen by Provider: Mar 27, 2023 Time Seen by Provider: 20:56 Initial Comments 32-year-old female presenting with approximately 3 to 4 weeks of generalized body aches and fatigue. She states that she started her menstrual cycle about 10 days ago and had 4 days of heavy bleeding or she was having to use a tampon about every hour. This is unusual for her. Since there was initial 4 days of heavy bleeding she has continued to have some spotting. She has felt more rundown and fatigued. Tonight her mother had noticed that she had some discoloration under some of her nails on her fingers. They are not painful and she does not remember any injury to the nails. She denies having a cough, fever, chills, abdominal pain, nausea, vomiting, diarrhea, sore throat, nasal congestion. Timing/Duration: Other (3 to 4 weeks) Severity: Moderate Modifying Factors: worse with Movement (The more active she is the more fatigued and more she has body aches) Associated Systoms: No Chest Pain, No Cough, No Diaphoresis, No Fever/Chills, No Headaches; Loss of Appetite, Malaise; No Nausea/Vomiting, No Rash, No Seizure, No Shortness of Air, No Syncope; Weakness (Generalized) Allergies and Home Medications Allergies Coded Allergies: tramadol (Verified Allergy, Unknown, 08/22/19) Patient Home Medication List Home Medication List Reviewed: Yes Azithromycin (Zithromax) 250 Mg Tablet, 250 MG PO UD Prescribed by: Glenys davis on 10/22/22 0940 Cephalexin (Cephalexin) 500 Mg Tablet, 500 MG PO TID Prescribed by: MIGUELANGEL SINGH on 03/01/22 1031 Docusate Sodium (Dok) 100 Mg Capsule, 100 MG PO BID PRN for CONSTIPATION-1ST LINE Prescribed by: JAMES DUPONT on 12/06/20 0726 Doxycycline Hyclate (Doxycycline Hyclate) 100 Mg Tablet, 100 MG PO BID Prescribed by: MIGUELANGEL SINGH on 03/01/22 1031 Hydrocodone Bit/Acetaminophen (HYDROcodone/APAP 5 MG/325 MG TAB) 1 Tab Tab, 1-2 EA PO Q6HR PRN for PAIN-MODERATE (5-7) Prescribed by: JAMES DUPONT on 06/09/212136 Ibuprofen (Ibu) 600 Mg Tablet, 600 MG PO Q6HR Prescribed by: JAMES DUPONT on 06/09/212136 Ibuprofen (Ibuprofen) 600 Mg Tablet, 600 MG PO Q6H PRN for PAIN-MILD Prescribed by: MIGUELANGEL SINGH on 03/01/22 103 Ketorolac Tromethamine (Ketorolac Tromethamine) 10 Mg Tablet, 10 MG PO Q8H Prescribed by: MIGUELANGEL SINGH on 03/15/22 05 Ketorolac Tromethamine (Ketorolac Tromethamine) 10 Mg Tablet, 10 MG PO TID PRN for PAIN-MILD (1-4) OR TEMPATURE Prescribed by: Glenys davis on 10/22/22 09 Methylprednisolone (Methylprednisolone Dose Pack) 4 Mg Tab.ds.pk, 4 MG PO UD Prescribed by: Glenys davis on 10/22/22 0940 Omeprazole (Omeprazole) 20 Mg Capsule.dr, 20 MG PO DAILY, (Reported) Entered as Reported by: MACARIO ROCHE on 10/28/202313 Ondansetron (Ondansetron Odt) 4 Mg Tab.rapdis, 4 MG PO Q6H PRN for NAUSEA/VOMITING Prescribed by: ABHIJIT HERNANDEZ on 02/23/21 0856 Penicillin V Potassium (Penicillin V Potassium) 500 Mg Tablet, 500 MG PO Q8H Prescribed by: MIGUELANGEL SINGH on 03/15/22518 Vit No.124/Iron/FA ( Vitamin Tablet) 1 Each Tablet, 1 EACH PO DAILY, (Reported) Entered as Reported by: MACARIO ROCHE on 10/28/202313 Review of Systems Review of Systems Constitutional: No chills, No fever EENTM: No epistaxis, No nose congestion, No throat pain Respiratory: No cough Cardiovascular: No chest pain Gastrointestinal: No abdominal pain, No nausea, No vomiting Genitourinary: No dysuria : No LMP: Mar 18, 2023 Musculoskeletal: see HPI Skin: see HPI, change in hair/nails (Concerned that there is some discoloration under the base of her nails) Psychiatric/Neurological: See HPI Hematologic/Lymphatic: Denies Blood Clots, Denies Easy Bleeding, Denies Easy Bruising Past Scrcjqv-Eocrgw-Lniyip Hx Patient Social History Tobacco Use?: No Use of E-Cig and/or Vaping dev: Yes Substance use?: No Alcohol Use?: No Pt feels they are or have been: No Seasonal Allergies Seasonal Allergies: No Past Medical History Surgery/Hospitalization HX: [facility], [facility], C-sect x 3, T&A, Tubal ligation, wrist x 2 Surgeries: Yes (c/s x2, UD, cyst removed from falliopan tube, bilat CTR) Appendectomy, Section, Gallbladder, Tonsillectomy Respiratory: No Cardiac: No Neurological: No Female Reproductive Disorders: Ovarian Cyst Genitourinary: No Gastrointestinal: Yes Gastroesophageal Reflux, Gall Bladder Disease Musculoskeletal: No Endocrine: No HEENT: No Cancer: No Psychosocial: No Depression Integumentary: No Blood Disorders: No Physical Exam Vital Signs Vital Signs - First Documented 03/27/23 20:54 Temp 36.4 Pulse 114 Resp 18 B/P (MAP) 157/95 (115) Pulse Ox 100 O2 Delivery Room Air Capillary Refill : Height, Weight, BMI Height: '" Weight: lbs. oz. kg; 49.00 BMI Method: General Appearance: No Apparent Distress, WD/WN, Obese Eyes: Bilateral Eye PERRL, Bilateral Eye EOMI HEENT: PERRL/EOMI, Normal ENT Inspection, Pharynx Normal, Moist Mucous Membranes Neck: Full Range of Motion, Normal Inspection, Non Tender, Supple Respiratory: Chest Non Tender, Lungs Clear, Normal Breath Sounds, No Accessory Muscle Use, No Respiratory Distress Cardiovascular: Regular Rate, Rhythm, Normal Peripheral Pulses, Tachycardia Gastrointestinal: Normal Bowel Sounds, No Pulsatile Mass, Non Tender, Soft Rectal: Deferred Extremity: Normal Capillary Refill, Normal Inspection, No Pedal Edema Neurologic/Psychiatric: Alert, Oriented x3, 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 It appeared to almost be bruised area. She denies any trauma to her fingers) Progress/Results/Core Measures Suspected Sepsis SIRS Temperature: Pulse: Respiratory Rate: Laboratory Tests 03/27/23 21:00: White Blood Count 8.5 Blood Pressure / Mean: Laboratory Tests 03/27/23 21:00: Creatinine 0.75, INR Comment 0.9, Platelet Count 391, Total Bilirubin 0.2 Results/Orders Lab Results Laboratory Tests Test 03/27/23 21:00 Range/Units White Blood Count 8.5 4.3-11.0 10^3/uL Red Blood Count 4.88 3.80-5.11 10^6/uL Hemoglobin 13.0 11.5-16.0 g/dL Hematocrit 39 35-52 % Mean Corpuscular Volume 80 80-99 fL Mean Corpuscular Hemoglobin 27 25-34 pg Mean Corpuscular Hemoglobin Concent 33 32-36 g/dL Red Cell Distribution Width 13.4 10.0-14.5 % Platelet Count 391 130-400 10^3/uL Mean Platelet Volume 9.9 9.0-12.2 fL Immature Granulocyte % (Auto) 0 % Neutrophils (%) (Auto) 60 42-75 % Lymphocytes (%) (Auto) 35 12-44 % Monocytes (%) (Auto) 4 0-12 % Eosinophils (%) (Auto) 1 0-10 % Basophils (%) (Auto) 1 0-10 % Neutrophils # (Auto) 5.1 1.8-7.8 10^3/uL Lymphocytes # (Auto) 2.9 1.0-4.0 10^3/uL Monocytes # (Auto) 0.4 0.0-1.0 10^3/uL Eosinophils # (Auto) 0.0 0.0-0.3 10^3/uL Basophils # (Auto) 0.1 0.0-0.1 10^3/uL Immature Granulocyte # (Auto) 0.0 0.0-0.1 10^3/uL Prothrombin Time 12.2 12.2-14.7 SEC INR Comment 0.9 0.8-1.4 Activated Partial Thromboplast Time 29 24-35 SEC Urine Color DARK YELLOW Urine Clarity CLOUDY Urine pH 6.0 5-9 Urine Specific [place] >=1.030 1.016-1.022 Urine Protein 1+ H NEGATIVE Urine Glucose (UA) NEGATIVE NEGATIVE Urine Ketones TRACE H NEGATIVE Urine Nitrite NEGATIVE NEGATIVE Urine Bilirubin 1+ H NEGATIVE Urine Urobilinogen 0.2 < = 1.0 MG/DL Urine Leukocyte Esterase NEGATIVE NEGATIVE Urine RBC (Auto) 3+ H NEGATIVE Urine RBC 0-2 /HPF Urine WBC 2-5 /HPF Urine Squamous Epithelial Cells 25-50 H /HPF Urine Crystals NONE /LPF Urine Bacteria LARGE H /HPF Urine Casts NONE /LPF Urine Mucus MODERATE H /LPF Urine Culture Indicated NO Sodium Level 141 135-145 MMOL/L Potassium Level 3.7 3.6-5.0 MMOL/L Chloride Level 103 98-107 MMOL/L Carbon Dioxide Level 25 21-32 MMOL/L Anion Gap 13 5-14 MMOL/L Blood Urea Nitrogen 7 7-18 MG/DL Creatinine 0.75 0.60-1.30 MG/DL Estimat Glomerular Filtration Rate 108 BUN/Creatinine Ratio 9 Glucose Level 111 H 70-105 MG/DL Calcium Level 9.4 8.5-10.1 MG/DL Corrected Calcium 9.2 8.5-10.1 MG/DL Total Bilirubin 0.2 0.1-1.0 MG/DL Aspartate Amino Transf (AST/SGOT) 13 5-34 U/L Alanine Aminotransferase (ALT/SGPT) 10 0-55 U/L Alkaline Phosphatase 78 40-136 U/L Total Protein 7.3 6.4-8.2 GM/DL Albumin 4.3 3.2-4.5 GM/DL SARS-CoV-2 RNA (RT-PCR) Not Detected Not Detecte My Orders Orders - VALERIE CEDILLO MD Comprehensive Metabolic Panel (03/27/23 21:14) Ua Culture If Indicated (03/27/23 21:14) Ed Iv/Invasive Line Start (03/27/23 21:14) Cbc With Automated Diff (03/27/23 21:14) Protime With Inr (03/27/23 21:14) Partial Thromboplastin Time (03/27/23 21:14) Urine Bedside (03/27/23 21:14) Covid 19 Inhouse Test (03/27/23 21:14) Ns Iv 1000 Ml (Sodium Chloride 0.9%) (03/27/23 21:14) Ketorolac Injection (Toradol Injection) (03/27/23 21:14) Ketorolac Injection (Toradol Injection) (03/27/23 21:24) Ns Iv 1000 Ml (Sodium Chloride 0.9%) (03/27/23 21:24) Vital Signs/I&O 03/27/23 20:54 Temp 36.4 Pulse 114 Resp 18 B/P (MAP) 157/95 (115) Pulse Ox 100 O2 Delivery Room Air Capillary Refill : Progress Note #1: Progress Note Potential diagnosis of anemia, viral illness, COVID, electrolyte imbalance, renal failure, hepatic failure, UTI ectopic . Establish peripheral IV access and send blood work for complete blood count, comprehensive metabolic profile, coagulation factors, urinalysis, bedside urine . COVID swab to check for viral illness. Administer normal saline 1 L IV fluid bolus for hydration, Toradol 30 mg IV for body aches. Counseled that the patient might need testing of her thyroid and patient states that she had blood work done yesterday for mental health and she thinks that they told her she was having thyroid testing included with that. Progress Note #2: Time: 21:48 Progress Note Complete blood count shows white blood cell count of 8.5 and hemoglobin is 13 with platelets of 391. Comprehensive metabolic profile shows a normal sodium of 141, potassium 3.7, creatinine 0.75, glucose 111. Coagulation factors are normal with pro time of 12.2 and INR of 0.9. PTT is 29 and again not showing any coagulopathy or increase in her clotting factors. Her urinalysis does show dehydration with a specific gravity greater than 1.030 and trace ketones. 3+ blood on the dipstick but only 0-2 red blood cells on the microscopic exam. She had 25-50 epithelial cells with large bacteria but appears to be more contamination with the skin cells being present. Awaiting COVID swab. So far off of the test and vital signs I have not seen anything to indicate discoloration of her nailbeds or reason for her to have the body aches and fatigue's as well as continued spotting with her menstrual cycle. We will plan on having her check back with her primary care provider, Dr. Luna. Also have her check back with mental health about the labs that were done yesterday to see if her thyroid level was off. If they did not check the thyroid level then that would be another thing that Dr. Luna might do. 2154 Covid swab negative. Proceed with plan as above. Departure Impression Primary Impression: Generalized body aches Additional Impressions: Fatigue Qualified Codes: R53.83 - Other fatigue Discoloration of nailbeds Dehydration Disposition: HOME, SELF-CARE Condition: Stable Departure-Patient Inst. Decision time for Depature: 21:55 Referrals: YVETTE LUNA MD (PCP/Family) Primary Care Physician Patient Instructions: Bruising Under the Nail, Fatigue ED, Muscle and Bone Pain (DC), Dehydration, Adult ED Add. Discharge Instructions: Try to stay well hydrated and drink more fluids and electrolyte drinks. Check back with [facility] to see if they did test your thyroid and what the results were from the blood work drawn yesterday. Check with Dr. Luna for continued work up and evaluation. Your blood work here in the Emergency Department does not show anemia or problems with your platelets or electrolytes and kidney and liver function. It looked like you were a little dehydrated. All discharge instructions reviewed with patient and/or family. Voiced understanding. VALERIE CEDILLO MD Mar 27, 2023 21:17
[2023-03-27 21:23] LABS: BASOPHILS # (AUTO) 0.1 10^3/uL (0.0-0.1); BASOPHILS % (AUTO) 1 % (0-10); EOSINOPHILS % (AUTO) 1 % (0-10); HEMATOCRIT 39 % (35-52); LYMPHOCYTES # (AUTO) 2.9 10^3/uL (1.0-4.0); LYMPHOCYTES % (AUTO) 35 % (12-44); MEAN CORPUSCULAR HEMOGLOBIN 27 pg (25-34); MEAN CORPUSCULAR HGB CONC 33 g/dL (32-36); MEAN CORPUSCULAR VOLUME 80 fL (80-99); MEAN PLATELET VOLUME 9.9 fL (9.0-12.2); MONOCYTES # (AUTO) 0.4 10^3/uL (0.0-1.0); MONOCYTES % (AUTO) 4 % (0-12); NEUTROPHILS # (AUTO) 5.1 10^3/uL (1.8-7.8); NEUTROPHILS % (AUTO) 60 % (42-75); PLATELET COUNT 391 10^3/uL (130-400); WHITE BLOOD COUNT 8.5 10^3/uL (4.3-11.0)
[2023-03-27] MEDS ORDERED: NS IV 1000 ML 1,000 ML ONE (21:24)
[2023-03-27] MEDS ORDERED: KETOROLAC 30 MG/ML VIAL ONE (21:24)
[2023-03-27 21:30] LABS: CLARITY,URINE CLOUDY; GLUCOSE, URINE (UA) NEGATIVE (NEGATIVE); KETONES,URINE TRACE (NEGATIVE); LEUKOCYTE ESTERASE ,URINE NEGATIVE (NEGATIVE); NITRITE,URINE NEGATIVE (NEGATIVE); PROTEIN,URINE 1+ (NEGATIVE)
[2023-03-27 21:31] LABS: INR 0.9 (0.8-1.4); PROTHROMBIN TIME PATIENT 12.2 SEC (12.2-14.7)
[2023-03-27 21:39] LABS: BACTERIA,URINE LARGE /HPF; BILIRUBIN,URINE 1+ (NEGATIVE); COLOR,URINE DARK YELLOW; RBC,URINE 0-2 /HPF; SQUAMOUS EPITHELIAL CELL,UR 25-50 /HPF
[2023-03-27 21:41] LABS: ALBUMIN 4.3 GM/DL (3.2-4.5); BILIRUBIN,TOTAL 0.2 MG/DL (0.1-1.0); CALCIUM 9.4 MG/DL (8.5-10.1); CREATININE SERUM 0.75 MG/DL (0.60-1.30); POTASSIUM 3.7 MMOL/L (3.6-5.0); TOTAL PROTEIN 7.3 GM/DL (6.4-8.2)
[2023-03-27 21:58] VITALS: BP 146/92
== END 2023-03-27 22:02 | disposition home or self-care (01) ==
LOC: EDUNIT# 20:53 → ER FS 20:55
DX: R53.83 Other fatigue (principal); E86.0 Dehydration; R52 Pain, unspecified; L60.8 Other nail disorders; E66.9 Obesity, unspecified; F17.290 Nicotine dependence, other tobacco product, uncomplicated; Z68.43 Body mass index [BMI] 50.0-59.9, adult; Z20.822 Contact with and (suspected) exposure to COVID-19
CPT/HCPCS: 36415; 80053; 81000; 84703; 85025; 85610; 85730; 87636